=== PATIENT | female | born 1970 | race Caucasian/White ===

== ENCOUNTER 2017-03-29 11:38 | Inpatient (IN) | payer OTHER ==
[~2017-03-29 11:38] MED LIST: ENOXAPARIN 40 MG/0.4 ML SYR SC SCH
--- NOTE | 2017-03-29 12:03 | CPEKG ---
Heart Rate: 100 RR Interval: 600 P-R Interval: 136 QRSD Interval: 90 QT Interval: 336 QTC Interval: 434 P Richmond: 46 QRS Richmond: 20 T Wave Richmond: -75 EKG Severity - ABNORMAL ECG - EKG Impression: SINUS TACHYCARDIA EKG Impression: LEFT ATRIAL ABNORMALITY Electronically Signed By: Sweetie Martin 29-Mar-2017 16:45:29
--- NOTE | 2017-03-29 12:35 | EDPHY ---
H & P Stated Complaint: "I think I have pleurisy";R lung pain HPI/ROS: CHIEF COMPLAINT: Sharp right-sided chest pain HISTORY OF PRESENT ILLNESS: This patient is a 46 year old female with history of lupus complaining of right lung pain onset this morning. She states she generally has intermittent joint pain related to her lupus, but yesterday began to develop muscle pain as well. This morning, she developed a sharp pain in her right chest, along with shortness of breath. She feels she needs to take shallow breaths to reduce the pain. She endorses sharp back pains over the last two weeks, and states her current pain feels similar. She states she has had pleurisy in the past, and that her symptoms today also feel similar to this. She has taken 30mg of Prednisone today at home with no relief in symptoms. She denies fever, cough, left-sided chest pain, calf pain. She denies recent travel or surgery. REVIEW OF SYSTEMS: A ten point review of systems was performed and is negative with the exception of the items mentioned in the HPI. Source: Patient Exam Limitations: No limitations - Personal History LMP (Females 10-55): Post Menopausal Current Tetanus Diphtheria and Acellular Pertussis (TDAP): Yes - Medical/Surgical History PMH: Lupus, diagnosed at age 24 Other PMH: Lupus - Social History Smoking Status: Former smoker Additional Social History: at bedside. PCP Miracle Verduzco PA-C, Dr. Austin greens keeper - Physical Exam Exam: General Appearance: Alert. Vital signs reviewed. Heart rate 106, blood pressure 118/81. Eyes: Pupils equal and round, no conjunctival injection, no discharge. Anicteric. ENT, Mouth: Right cheek erythematous, warm. Mucous membranes are moist, no oropharyngeal erythema or edema. Neck: No lymphadenopathy, supple. No meningeal signs. Respiratory: Lungs are clear to auscultation; no wheezes, rales, or rhonchi. Cardiovascular: Regular rate and rhythm; no murmur, rub, or gallop. Gastrointestinal: Abdomen is soft and nontender, no masses or organomegaly, bowel sounds normal. Skin: Warm and dry, no rashes on exposed skin, normal color. Back: Nontender to palpation over the thoracolumbar spine. No CVAT. Extremities: No lower extremity edema, no calf tenderness or swelling. Neurological: Alert and oriented. Moving all four extremities easily and equally. Cranial nerves II through XII are examined and are intact (visual acuity not tested). Strength is 5 over 5 bilaterally with testing of all major motor groups. Sensation is intact to light touch over all 4 extremities. Psychiatric: Normal affect. Constitutional: Initial Vital Signs Temperature (C) 37.1 C 03/29/17 11:40 Heart Rate 106 H 03/29/17 11:40 Respiratory Rate 20 03/29/17 11:40 Blood Pressure 118/81 H 03/29/17 11:40 O2 Sat (%) 92 03/29/17 11:40 O2 Delivery Mode Nasal Cannula O2 (L/minute) 2 Allergies/Adverse Reactions: No Known Allergies Allergy (Unverified 03/29/17 11:47) Home Medications: Medication Instructions Recorded Herbals/Supplements -Info Only 1 ea PO DAILY 03/29/17 Hydroxychloroquine Sulfate 400 mg PO HS 03/29/17 [Plaquenil 200 mg (*)] Multivitamins [Multivitamin (*)] 1 each PO DAILY 03/29/17 Mycophenolate Mofetil [Cellcept] 1,000 mg PO HS 03/29/17 Omeprazole [Prilosec 20 mg] 20 mg PO DAILY PRN 03/29/17 predniSONE 5 - 15 mg PO DAILY 03/29/17 traMADol [Ultram 50 mg (*)] 50 mg PO Q4 PRN 03/29/17 Medical Decision Making - Diagnostics EKG Interpretation: The 12 lead EKG was interpreted by myself. See hard copy and/or "tracemaster" electronic copy for interpretation. Sinus tachycardia, rate 100. Imaging Results: 1. Chest x-ray shows a right pleural effusion 2. Chest CTA does not reveal a pulmonary embolus. There is a right pleural effusion. There is also a cystic lesion that involves the right kidney--this is not fully evaluated on this study 3. Abdominal CT shows a psoas abscess 4. Facial CT shows right cheek swelling, no obvious infection. All of above studies reported to me by radiologist. Please see their full reports. Imaging: Discussed imaging studies w/ call manager Radiologist, I viewed and interpreted images myself ED Course/Re-evaluation: This patient is a 46 year old female with history of lupus presenting with sharp right-sided chest pain onset this morning. On exam she also has erythema and warmth involving her right cheek (only the right). She has had rashes with her lupus before and thinks that this could be a lupus related rash. Chest x-ray shows right pleural effusion. Elevated WBC at 33. D-Dimer abnormal, elevated at 2.34. CT angiogram of the chest ordered. 13:49 Reassessed patient. Erythematous area on right side of face now spreading down to neck. No crepitus. 14:[address] Rios, radiologist. CT angiogram shows right pleural effusion and a right renal associated cyst measuring 7 x 9 cm. No pneumonia and no PE. She is being admitted to the hospital for further evaluation of her pleural effusion and of the cystic structure in her abdomen. CT of the abdomen and pelvis is recommended and will be performed. Facial erythema has extended onto her neck and slightly on to her upper chest. There is also an erythematous area on her nose. It is warm to the touch. Still without crepitus. I have spoken with Ear Nose and Throat because of my concern for necrotizing fasciitis in this setting of lupus with significant leukocytosis. She does not have any pain in the regions of this redness. CT scan of the face is also being performed to assess further. Blood cultures have been obtained. She will be given a dose of vancomycin. Blood cultures have been obtained. Dr. Nguyen will be admitting this patient. CT scan results pending at the time of this dictation. Differential Diagnosis: I have considered a differential diagnosis including but not limited to complication of lupus, necrotizing fasciitis, cellulitis, abscess, pneumonia, urinary tract infection, viral syndrome, and sepsis. - Data Points Laboratory Results: Laboratory Results 03/29/17 12:00 03/29/17 12:00 Microbiology Results: MICROBIOLOGY 03/29/17 15:32 Blood Blood Culture - Preliminary 03/29/17 16:05 Blood Blood Culture - Preliminary Medications Given: Discontinued Medications Enoxaparin Sodium (Lovenox) 40 mg SC DAILY SHIRA Stop: 09/25/17 08:59 Last Admin: 03/29/17 18:16 Dose: Not Given Vancomycin/Sodium Chloride (Vancomycin 1 Gm (Premix)) 250 mls @ 250 mls/hr IV EDNOW ONE PRN Reason: Protocol Stop: 03/29/17 16:19 Last Admin: 06/30/17 16:11 Dose: 250 mls Sodium Chloride (Ns) 1,000 mls @ 0 mls/hr IV ONCE ONE; Wide Open PRN Reason: Protocol Stop: 03/29/17 15:42 Last Admin: 03/29/17 16:11 Dose: 1,000 mls Sodium Chloride (Ns) 1,000 mls @ 3,000 mls/hr IV ONCE ONE Stop: 03/29/17 16:28 Last Admin: 03/29/17 16:11 Dose: Not Given Morphine Sulfate (Morphine) 6 mg IVP EDNOW ONE Stop: 03/29/17 15:57 Last Admin: 03/29/17 16:09 Dose: 6 mg Departure - Departure Disposition: [facility] Inpatient Acute Clinical Impression: Pleural effusion, Facial cellulitis, Abdominal cyst Condition: Fair Report Scribed for: Sweetie Martin Report Scribed by: Mesha Caldera Date of Report: 03/29/17 Time of Report: 12:42 Physician Review and Approval Statement: 03/29/17 12:35 Portions of this note were transcribed by the bio medical technician. I, Dr. Sweetie Martin, personally performed the history, physical exam, and medical decision- making; and confirmed the accuracy of the information in the transcribed note.
[2017-03-29 13:11] LABS: ADD MORPH? NO; ADD SCAN? YES; ATYPICAL LYMPHOCYTE FLAG 0 (0-99); FRAGMENT RBC FLAG 20 (0-99); HEMATOCRIT 41.1 % (38.0-47.0); HEMOGLOBIN 12.4 g/dL (12.6-16.3); LEFT SHIFT FLG 80 (0-99); LIPEMIA HEMOLYSIS FLAG 80 (0-99); MEAN CELL HEMOGLOBIN 24.6 pg (27.9-34.1); MEAN CELL HEMOGLOBIN CONCENTR. 30.2 g/dL (32.4-36.7); MEAN CELL VOLUME 81.5 fL (81.5-99.8); MEAN PLATELET VOLUME 11.2 fL (8.7-11.7); PLATELET CLUMPS FLAG 10 (0-99); PLATELET COUNT 529 10^3/uL (150-400); RED BLOOD CELL COUNT 5.04 10^6/uL (4.18-5.33); RED CELL DISTRIBUTION WIDTH 18.1 % (11.5-15.2)
[2017-03-29 13:14] LABS: ANION GAP 12 mEq/L (8-16); CARBON DIOXIDE 29 mEq/l (22-31); CHLORIDE 94 mEq/L (97-110); CREATININE 0.6 mg/dL (0.6-1.0); GLOMERULAR FILTRATION RATE > 60; GLUCOSE 113 mg/dL (70-100); POTASSIUM 3.5 mEq/L (3.5-5.2); SODIUM 135 mEq/L (134-144)
[2017-03-29 13:41] LABS: ADD DIFF? YES; SCAN POSITIVE
[2017-03-29 13:44] LABS: PLATELET ESTIMATE INCREASED (ADEQ)
[2017-03-29] MEDS ORDERED: IOPAMIDOL (ISOVUE 370) 100 ML BTL IV ONE (14:00)
[2017-03-29] MEDS ORDERED: VANCOMYCIN HCL/NORMAL SALINE 250 ML IV ONE (15:20)
[2017-03-29] MEDS ORDERED: NS 1,000 ML IV ONE ×2 (15:41→16:09)
[2017-03-29] MEDS ORDERED: IOPAMIDOL (ISOVUE-300) 100 ML BTL ONE (16:13)
[2017-03-29] MEDS ORDERED: ONDANSETRON 4 MG/2 ML VIAL IVP PRN (17:10)
[2017-03-29] MEDS ORDERED: ONDANSETRON DISINTEGRATING 4 MG TAB PO PRN (17:10)
[2017-03-29] MEDS ORDERED: ACETAMINOPHEN 325 MG TAB PO PRN (17:10)
[2017-03-29] MEDS ORDERED: NON-FORMULARY NEW DRUG (Omeprazole [Prilosec 20 Mg] 20 MG) PO PRN (17:13)
[2017-03-29] MEDS ORDERED: LIDOCAINE 1% 300 MG/30 ML SDV ONE (17:53)
--- NOTE | 2017-03-29 18:32 | GHP ---
[f rep st] HISTORY AND PHYSICAL DATE OF ADMISSION: 03/29/2017 CHIEF COMPLAINT: Chest and back pain. HISTORY OF PRESENT ILLNESS: A 46-year-old female with a history of lupus, on intermittent prednison e therapy, who presents with the sudden onset of right-sided chest and back pain, with associated sh ortness of breath. The patient reports the pain beginning this morning. She states she has been in her normal state of health preceding, with normal intake. Cannot specifically describe any subject renetta fevers or chills. Is experiencing a pleuritic nature to this pain, as well as a muscle-type vale k pain. The patient describes this pain as sharp. She, in response, took 30 mg of prednisone today from her normal 5, thinking this may be somehow related to her lupus. Otherwise, she denies any co nstipation or diarrhea. Denies dysuria. Denies hematuria. Did note some erythema of her right guerda ek. Otherwise, no lower extremity edema or clear rashes. The patient also denies any recent cough for hemoptysis. PAST MEDICAL HISTORY: 1. Lupus. 2. Menopausal. SOCIAL HISTORY: Negative for tobacco, alcohol, or illicit drugs. FAMILY HISTORY: Positive for lupus in her sister. ADVANCED DIRECTIVES: The patient is full cor, full tube. REVIEW OF SYSTEMS: A 10-point review of systems is negative with the exception of that reported in the HPI. PHYSICAL EXAMINATION: VITAL SIGNS: Blood pressure 111/73, heart rate 81, respiratory rate 18, 92% on 2 L, 36.7. GENERAL: This is a very pleasant-appearing young female in no acute distress. HEENT : Exam notable for erythema of the cheek that extends down the right side of her neck. Mucous memb ranes appear dry. Eye exam is negative for any icterus. CARDIAC: The patient is regular rate and rhythm. PULMONARY: She is clear to auscultation. Has diminished breath sounds on the right. No r ales or rhonchi are appreciated. GASTROINTESTINAL: Positive bowel sounds. ABDOMEN: Soft and nont nydia in all 4 quadrants. MUSCULOSKELETAL: Negative for any lower extremity edema. SKIN: Notable for erythema of the right cheek and right neck. NEUROLOGIC: She is alert and oriented x3. PSYCHI ATRIC: She is pleasant and cooperative on interview and examination. DATA: White count is 33,000. On last check, it was 9. Hematocrit 41.1, platelets 529. D-dimer 2. 3. Creatinine 0.6, sodium 135. CTA of the chest shows no pulmonary embolism. There is a right-yaniv ed effusion noted, described as large, with no underlying pneumonia. A cystic legion is described n ear the right kidney. CT of the pelvis, which I personally reviewed and interpreted, shows an irreg ular, large, right-sided psoas abscess and constipation. CT of the face, which I personally reviewe d and interpreted, shows mild cheek swelling. No cellulitis identified. ASSESSMENT AND PLAN: This is a 46-year-old female, presenting with right-sided back and chest pain. 1. Acute psoas abscess. The patient will be seen in consultation by General Surgery, Dr. Green. I have already coordinated the drainage of this by Radiology, Dr. Monzon. The patient has been made n. p.o., and ultrasound drainage has been ordered. We will initially treat with IV Zosyn. Blood cultu res were obtained in the emergency department. We can titrate her antibiotic therapy based on the c ulture results, both from her blood and her abscess drainage. 2. Acute leukocytosis secondary to acute psoas abscess. We will follow her white count on appropri ate therapy. 3. Right-sided pleural effusion. Suspect this is a response to her right-sided psoas abscess. We will not attempt drainage at this time. We will treat the underlying process and follow her clinica l progression. 4. Lupus. The patient did take a pulse dose of steroids today. Her blood pressures are normal. S uspect she will likely need pulse dosing for the next day or 2. I will write her for prednisone 20 tomorrow and then allowed the ongoing physician to determine dosing. 5. Prophylaxis. We will hold Lovenox for drainage of her abscess. Can give in the morning. She i s ambulating currently. We will continue to encourage this. 6. Diet. N.p.o. for intervention. DISPOSITION: I am expecting greater than 2 midnights, as the patient is presenting with an acute ps oas abscess, requiring drainage and IV antibiotics. I have discussed the case with the emergency ro om physician, as well as with Radiology and General Surgery. The patient will be triaged to the [facility] for IV antibiotics and ultrasound-guided drainage of her abscess. /[id number]/MODL
--- NOTE | 2017-03-29 18:50 | PDCONSULT ---
Violin Maker Hand Note: CC: back pain HPI: 46 y/o female with one month hx worsening back and right flank pain seen in the ED today for facial erythema. CT of the abd and pelvis showed a large right psoas abscess. Surgical consult was requested PMH: Lupus meds: Prednisone, Plaquenil NKDA SH: PCP Miracle Pearl, DATA GOVERNANCE CONSULTANT Coin Machine Collector Supervisor Win Paulson MD Pankaj at bedside-two teenage children ROS: kicked by a horse in the right chest area last fall no more recent trauma, no complicated dental issues PE: pleasant female in mild distress HEENT: - icterus/adenopathy, bi-malar rash lungs: diminished breath sounds right chest CVS: RRRf-tachy abd: no focal tenderness/+ R CVA tenderness pelvic: deferred wbc 33K Imp: right psoas abscss SLE on steroids Rec: attempt percutaneous drainage/surgical drainage if unsuccessful discussed with patient, and Dr. Nicolás Green MD, FACS
[2017-03-29] MEDS: PIPERACILLIN/TAZO 3.375 GM/DEX 50 ML IV SCH (19:52)
[2017-03-29] MEDS: HYDROXYCHLOROQUINE SULFATE 200 MG TAB PO SCH (20:04)
[2017-03-29 20:31] LABS: BODY FLUID CELL COUNT OTHER BODY FLUID
[2017-03-29 20:34] LABS: BODY FLUID GLUCOSE OTHER BODY FLUID; BODY FLUID PROTEIN OTHER BODY FLUID
[2017-03-30] MEDS: PIPERACILLIN/TAZO 3.375 GM/DEX 50 ML IV SCH ×5 (00:15→23:28)
[2017-03-30] MEDS: traMADol 50 MG TAB PO PRN (00:15)
[2017-03-30 05:09] LABS: % IMMATURE GRANULYOCYTES 1.1 % (0.0-1.1); ABSOLUTE IMMATURE GRANULOCYTES 0.25 10^3/uL (0.00-0.10); ADD DIFF? NO; ADD MORPH? NO; ADD SCAN? NO; ATYPICAL LYMPHOCYTE FLAG 0 (0-99); FRAGMENT RBC FLAG 20 (0-99); HEMATOCRIT 31.7 % (38.0-47.0); HEMOGLOBIN 9.5 g/dL (12.6-16.3); LEFT SHIFT FLG 80 (0-99); LIPEMIA HEMOLYSIS FLAG 80 (0-99); MEAN CELL HEMOGLOBIN 24.2 pg (27.9-34.1); MEAN CELL VOLUME 80.9 fL (81.5-99.8); MEAN PLATELET VOLUME 10.2 fL (8.7-11.7); PLATELET CLUMPS FLAG 0 (0-99); PLATELET COUNT 333 10^3/uL (150-400); RED BLOOD CELL COUNT 3.92 10^6/uL (4.18-5.33); RED CELL DISTRIBUTION WIDTH 18.2 % (11.5-15.2)
[2017-03-30 05:22] LABS: ANION GAP 9 mEq/L (8-16); CALCIUM 9.3 mg/dL (8.5-10.4); CARBON DIOXIDE 27 mEq/l (22-31); CHLORIDE 101 mEq/L (97-110); CREATININE 0.6 mg/dL (0.6-1.0); GLOMERULAR FILTRATION RATE > 60; GLUCOSE 93 mg/dL (70-100); POTASSIUM 3.7 mEq/L (3.5-5.2); SODIUM 137 mEq/L (134-144)
--- NOTE | 2017-03-30 08:28 | HOSPPROG ---
Hospitalist Progress Note Assessment/Plan: # R psoas abscess s/p percutaneous drainage - GS with GNR, GPC - cont zosyn, add vanc pending speciation of GPC - likely needs ID consult # R pleural effusion, loculated - will need drainage - discuss with surgery regarding IR vs chest tube drainage # R facial erythema - minimal on my exam; d/t Lupus vs other? # lupus - cont MMF, high dose of pred for now # chronic immunosuppression # leukocytosis - combination of steroids and inflammation Subjective: R chest pain slightly better today Objective: Vital Signs Temp Pulse Resp BP Pulse Ox 36.5 C 75 16 108/71 92 03/30/17 04:01 03/30/17 04:01 03/30/17 04:01 03/30/17 04:01 03/30/17 04:01 Microbiology 03/29/17 Unknown Gram Stain - Final Pelvis - Aspirate Laboratory Results 03/30/17 04:44 03/30/17 04:44 03/29/17 03/30/17 03/31/17 05:59 05:59 05:59 Intake Total 300 Output Total 60 Balance 240 chart reviewed all imaging reviewed - Physical Exam Constitutional: no apparent distress, appears nourished Ears, Nose, Mouth, Throat: other (mild R facial erythema; decreased R neck erythema) Cardiovascular: regular rate and rhythym, no murmur, rub, or gallop Respiratory: no respiratory distress, no rales or rhonchi, other (diminished R sided BS) Gastrointestinal: normoactive bowel sounds, soft, non-tender abdomen, other (ADIN drain with purulence) ICD10 Worksheet Patient Problems: Problems Problem Status Onset Pleural effusion Acute Facial cellulitis Acute Abdominal cyst Acute
[2017-03-30] MEDS: predniSONE 20 MG TAB PO SCH (08:55)
[2017-03-30] MEDS: MULTIVITAMINS 1 EACH TAB PO SCH (08:55)
[2017-03-30] MEDS ORDERED: predniSONE 5 MG TAB PO SCH (09:00)
[2017-03-30] MEDS ORDERED: Herbals/Supplements -Info Only PO SCH (09:00)
[2017-03-30] MEDS ORDERED: VANCOMYCIN 1.5 GM in D5W 250 ML IV SCH (09:00)
[2017-03-30] MEDS: VANCOMYCIN 1.25 GM in D5W 250 ML IV SCH ×2 (09:53→21:28)
[2017-03-30] MEDS ORDERED: LIDOCAINE 1% 300 MG/30 ML SDV ONE (14:20)
[2017-03-30 14:42] LABS: APTT 24.6 SEC (23.0-38.0); INR 1.23 (0.83-1.16); PROTIME(PATIENT) 15.5 SEC (12.0-15.0)
[2017-03-30] MEDS ORDERED: NON-FORMULARY NEW DRUG (Mycophenolate Mofetil [Cellcept] 1,000 MG) PO SCH (21:00)
[2017-03-30] MEDS: HYDROXYCHLOROQUINE SULFATE 200 MG TAB PO SCH (21:28)
[2017-03-30] MEDS: MYCOPHENOLATE MOFETIL 250 MG CAP PO SCH (21:28)
[2017-03-31] MEDS: PIPERACILLIN/TAZO 3.375 GM/DEX 50 ML IV SCH ×3 (05:27→17:53)
[2017-03-31 05:38] LABS: % IMMATURE GRANULYOCYTES 0.8 % (0.0-1.1); ABSOLUTE IMMATURE GRANULOCYTES 0.16 10^3/uL (0.00-0.10); ADD DIFF? NO; ADD MORPH? NO; ADD SCAN? NO; ATYPICAL LYMPHOCYTE FLAG 0 (0-99); FRAGMENT RBC FLAG 0 (0-99); HEMATOCRIT 28.8 % (38.0-47.0); HEMOGLOBIN 8.8 g/dL (12.6-16.3); LEFT SHIFT FLG 10 (0-99); LIPEMIA HEMOLYSIS FLAG 80 (0-99); MEAN CELL HEMOGLOBIN 24.7 pg (27.9-34.1); MEAN CELL HEMOGLOBIN CONCENTR. 30.6 g/dL (32.4-36.7); MEAN CELL VOLUME 80.9 fL (81.5-99.8); MEAN PLATELET VOLUME 10.2 fL (8.7-11.7); PLATELET CLUMPS FLAG 0 (0-99); PLATELET COUNT 319 10^3/uL (150-400); RED BLOOD CELL COUNT 3.56 10^6/uL (4.18-5.33); RED CELL DISTRIBUTION WIDTH 17.8 % (11.5-15.2)
[2017-03-31 05:53] LABS: ANION GAP 6 mEq/L (8-16); CALCIUM 9.4 mg/dL (8.5-10.4); CARBON DIOXIDE 27 mEq/l (22-31); CHLORIDE 105 mEq/L (97-110); CREATININE 0.6 mg/dL (0.6-1.0); GLOMERULAR FILTRATION RATE > 60; GLUCOSE 94 mg/dL (70-100); POTASSIUM 3.7 mEq/L (3.5-5.2); SODIUM 138 mEq/L (134-144)
--- NOTE | 2017-03-31 08:18 | HOSPPROG ---
Hospitalist Progress Note Assessment/Plan: # R psoas abscess s/p percutaneous drainage - GS with GNR, GPC; culture with staph a - sens pending - cont zosyn/vanc - ID consult today # R pleural effusion, loculated - will need drainage - plan IR drainage today # R facial erythema - minimal on my exam; d/t Lupus vs other? # lupus - cont MMF, high dose of pred for now # chronic immunosuppression # leukocytosis - combination of steroids and inflammation Subjective: chest pain improving; no N/V/diarrhea Objective: Vital Signs Temp Pulse Resp BP Pulse Ox 36.4 C 67 20 102/71 93 03/31/17 07:40 03/31/17 07:40 03/31/17 07:40 03/31/17 07:40 03/31/17 07:40 Microbiology 03/29/17 Unknown Gram Stain - Final Pelvis - Aspirate Laboratory Results 03/31/17 05:03 03/31/17 05:03 03/30/17 03/31/17 04/01/17 05:59 05:59 05:59 Intake Total 300 Output Total 60 25 Balance 240 -25 PT 15.5 SEC (12.0-15.0) H 03/30/17 14:15 INR 1.23 (0.83-1.16) H 03/30/17 14:15 mod risk - Physical Exam Constitutional: no apparent distress, appears nourished Cardiovascular: regular rate and rhythym, no murmur, rub, or gallop Respiratory: no respiratory distress, no rales or rhonchi, other (diminished R base BS) Gastrointestinal: normoactive bowel sounds, soft, non-tender abdomen ICD10 Worksheet Patient Problems: Problems Problem Status Onset Pleural effusion Acute Facial cellulitis Acute Abdominal cyst Acute
--- NOTE | 2017-03-31 09:12 | PDCONSULT ---
[employer]vention [employer] Psychologist Note: Alma is feeling better, no further back pain Lungs: diminished right mid lung to base Abd: soft/non-tender, ADIN purulent cultures: S. aureus Imp: s/p drainage right psoas abscess right pleural effusion-probably sympathetic effusion Rec: continue Abx drain mangement per IR reconsult surgery prn. S MD Peter, FACS
[2017-03-31] MEDS: predniSONE 20 MG TAB PO SCH (09:29)
[2017-03-31] MEDS: MULTIVITAMINS 1 EACH TAB PO SCH (09:29)
[2017-03-31] MEDS: VANCOMYCIN 1.25 GM in D5W 250 ML IV SCH ×2 (10:15→21:58)
[2017-03-31 14:25] LABS: LACTATE DEHYDROGENASE 434 IU/L (313-618)
--- NOTE | 2017-03-31 14:27 | GCON ---
[f rep st] CONSULTATION DATE OF CONSULTATION: 03/31/2017 REFERRING PHYSICIAN: Dr. Cornelio Correa REASON FOR CONSULTATION: Large right psoas abscess, right pleural effusion, for further evaluation of pain. CHIEF COMPLAINT: Shortness of breath. HISTORY OF PRESENTING ILLNESS: This is a 46-year-old female with a past medical history for lupus on low-dose prednisone therapy. She states that she has been having increasing fatigue, shortness of breath, right-sided back pain for the past few months. She denied any dysuria or hematuria. She was short of breath with minimal exertion. She denied any coughing or bringing up any phlegm. She does not recall any fevers or shaking chills as such except for this past week on when she started to have some low-grade temperatures and increasing shortness of breath at that time. She also complained of some chest pain at that time, which ended up prompting her to come into the hospital. On that particular day she took 30 mg of prednisone wherein she is normally on 5 mg of prednisone. In the ED, she was relatively afebrile, but she was tachycardic to 106. Her white blood cell count was 33,000 with 16% bands. Blood cultures x2 sets were drawn and those are no growth to date. She had initially a chest x-ray done which showed moderate right pleural effusion with associated consolidation. She ended up undergoing a CT angio which then showed no evidence of a PE, but she had again a new large right pleural effusion and an associated large cystic lesion near the kidney. She underwent an abdominal CT which showed that she had an irregular fluid collection right psoas muscle suspicious for an abscess and again a loculated pleural effusion. She also had a face CT because she had swelling and redness of her right cheek which extended down her right neck. The CT did not provide any additional information as far as an etiology to her clinical findings. She underwent an abscess drainage on March 29 wherein 300 mL of thick, purulent yellow fluid was withdrawn and this was sent for cultures. The culture showed 3+ gram-positive cocci, 1+ gram-negative rods, 2+ polys and so far is growing out 4+ Staph aureus. She was placed on vancomycin and Zosyn therapy. The sensitivity profile on the Staph aureus is not out yet so it is unclear whether this is MSSA or MRSA. She is going down today for a right thoracentesis to evaluate that further as well. Infectious Disease was now consulted to help with management. REVIEW OF SYSTEMS: GENERAL: Intermittent headaches but none currently. HEENT : As far as head is concerned, she had no headaches. Denies any eye pain, change in vision. No sore throat, difficulty swallowing, ear pain or drainage. CARDIOVASCULAR: Apart from the last couple of days where she had some chest pains no previous chest pain or palpitations. RESPIRATORY: Shortness of breath with exertion. No coughing or bringing up any phlegm. ABDOMEN: No nausea, vomiting, abdominal pain, or diarrhea. : Denies any dysuria, hematuria. BACK: Had some lower back pain particularly on the right. MUSCULOSKELETAL: Denies any lower extremity edema or muscle weakness. She does have chronic pain related to her lupus which is not increased more than normal. SKIN: Denies any recent skin lesions or wounds. She has just had this redness over her right cheek, it is extending to her neck of uncertain etiology. PAST MEDICAL HISTORY:Lupus PAST SURGICAL HISTORY:none ALLERGIES: no known medication allergies SOCIAL HISTORY: nonsmoker, denies alcohol intake. FAMILY HISTORY: Sister has Lupus PHYSICAL EXAMINATION: VITAL SIGNS: Temperature current 37.2, pulse is 87, blood pressure 104/70, saturation on 4 L O2 via nasal cannula. Respiratory rate 16. GENERAL: She is resting comfortably in bed. No acute respiratory distress. Awake, alert, and oriented x3. HEENT: Head normocephalic atraumatic. Eyes without conjunctival injection. Oropharynx is clear. There is no tenderness over the palpation of the sinuses. She has some mild swelling and redness over the right cheek. CARDIOVASCULAR: S1, S2. Regular rate and rhythm. Possible murmur but difficult to discern. RESPIRATORY : Decreased breath sounds on the right particularly. ABDOMEN: Positive bowel sounds in all 4 quadrants. Soft, nontender, nondistended. No organomegaly appreciated. RIGHT BACK: She has a drain in place with purulent material noted. MUSCULOSKELETAL: No obvious joint effusions or pain on palpation of the joints. SKIN: No obvious rashes. LABORATORY: White blood cell count is 19.7, hemoglobin 8.8, platelets are 319, 8%. Sodium 138, potassium 3.7, chloride 105, bicarb 27, BUN is 10 , creatinine 0.6. Cultures as stated above. Imaging results have all been reviewed by me and are stated above. ASSESSMENT: 1. Large right psoas abscess. 2. Right pleural effusion for thoracentesis today. PLAN: The patient is currently on vancomycin and Zosyn therapy. Await Staph aureus profile to better direct her antimicrobials. If no additional gram negatives grew out, should be able to tailor down her therapy further. Will monitor drain output and when the drainage is minimal for several days recommend a followup CT of the abdomen and pelvis to further evaluate any residual abscess collections. Await thoracentesis to assess whether or not she has empyema or not. Follow labs. Plan of care was reviewed with the patient and the at the bedside. Care was coordinated with Dr. oCrrea. Thank you very much for this opportunity to care for your patient in consultation. /[id number]/MODL MTDD
[2017-03-31] MEDS: traMADol 50 MG TAB PO PRN (15:10)
[2017-03-31 15:36] LABS: LD, PLEURAL FLUID 28989 IU/L
[2017-03-31] MEDS: HYDROXYCHLOROQUINE SULFATE 200 MG TAB PO SCH (21:57)
[2017-03-31] MEDS: MYCOPHENOLATE MOFETIL 250 MG CAP PO SCH (21:58)
[2017-04-01] MEDS: traMADol 50 MG TAB PO PRN (00:08)
[2017-04-01] MEDS: PIPERACILLIN/TAZO 3.375 GM/DEX 50 ML IV SCH ×2 (00:09→05:34)
[2017-04-01 05:21] LABS: % IMMATURE GRANULYOCYTES 1.6 % (0.0-1.1); ABSOLUTE IMMATURE GRANULOCYTES 0.25 10^3/uL (0.00-0.10); ADD DIFF? NO; ADD MORPH? NO; ADD SCAN? NO; ATYPICAL LYMPHOCYTE FLAG 0 (0-99); FRAGMENT RBC FLAG 20 (0-99); HEMATOCRIT 33.1 % (38.0-47.0); HEMOGLOBIN 9.8 g/dL (12.6-16.3); LEFT SHIFT FLG 20 (0-99); LIPEMIA HEMOLYSIS FLAG 70 (0-99); MEAN CELL HEMOGLOBIN 24.1 pg (27.9-34.1); MEAN CELL HEMOGLOBIN CONCENTR. 29.6 g/dL (32.4-36.7); MEAN CELL VOLUME 81.5 fL (81.5-99.8); MEAN PLATELET VOLUME 10.7 fL (8.7-11.7); PLATELET CLUMPS FLAG 10 (0-99); PLATELET COUNT 316 10^3/uL (150-400); RED BLOOD CELL COUNT 4.06 10^6/uL (4.18-5.33); RED CELL DISTRIBUTION WIDTH 17.9 % (11.5-15.2)
[2017-04-01 05:34] LABS: ALBUMIN 2.1 g/dL (3.5-5.0); BILIRUBIN,TOTAL 0.6 mg/dL (0.1-1.4); BILIRUBIN-CONJUGATED 0.5 mg/dL (0.0-0.5); BILIRUBIN-UNCONJUGATED 0.1 mg/dL (0.0-1.1); TOTAL PROTEIN 4.8 g/dL (6.3-8.2)
--- NOTE | 2017-04-01 08:47 | PCMIDPN ---
Assessment/Plan: Assessment: MRSA psoas abscess with right-sided exudate of pleural effusion. No positive growth from fluid culture yet from the chest cavity but given the cell counts would fully anticipate this is secondary to MRSA as well. Currently being covered on vancomycin and Zosyn. Will discontinue the Zosyn at this point in time. Will follow the fluid cultures forward. Also follow up on blood cultures. Clinically the patient has improved stability today. Plan: 1. Continue IV vancomycin. Trough from yesterday 13.1 is reasonable. Do not change dose. 2. Follow up on right pleural effusion. If this is secondary to MRSA it is possible that she may need VATS and decortication. 3. Discontinue Zosyn. 4. Follow clinical course. 04/01/17 08:47 Subjective: Patient is resting in her hospital bed. She has no new complaint. States that she feels better than admission. Notes that the pleuritic discomfort is somewhat lessened. It is replaced by discomfort from the chest tube. Objective: Vancomycin # 3 Zosyn # 3 Vital Signs Temp Pulse Resp BP Pulse Ox 36.2 C 72 16 111/73 100 04/01/17 07:51 04/01/17 07:51 04/01/17 07:51 04/01/17 07:51 04/01/17 07:51 Microbiology 03/31/17 12:40 Gram Stain - Final Thoracic Fluid - Aspirate 03/29/17 Unknown Gram Stain - Final Pelvis - Aspirate Laboratory Results 04/01/17 04:52 03/31/17 05:03 03/31/17 04/01/17 04/02/17 05:59 05:59 05:59 Intake Total 400 Output Total 25 270 Balance -25 130 - Physical Exam General Appearance: WD/WN, alert, no apparent distress, non-toxic Respiratory: lungs clear, normal breath sounds, No respiratory distress Cardiac/Chest: regular rate, rhythm, No tachycardia Skin: normal color, warm/dry, No rash Neuro/Psych: alert, normal mood/affect, oriented x 3 ICD10 Worksheet Patient Problems: Problems Problem Status Onset Abdominal cyst Acute Facial cellulitis Acute Pleural effusion Acute
[2017-04-01] MEDS ORDERED: ALTEPLASE 2 MG VIAL IVP PRN (09:09)
--- NOTE | 2017-04-01 09:15 | HOSPPROG ---
Hospitalist Progress Note Assessment/Plan: # R psoas abscess s/p percutaneous drainage - MRSA - cont vanc, dc zosyn # R pleural effusion - suspect this will be empyema - s/p 6f pigtail CT - doubt this will be adequate - wait for cultures (GS with no organisms) before making further decisions - options include large bore CT vs VATS - place PICC # R facial erythema - resolved; d/t Lupus? # lupus - cont MMF, taper pred 20->10mg today; follow closely for adrenal insufficiency with ongoing procedures # chronic immunosuppression # leukocytosis - combination of steroids and inflammation Subjective: s/p IR apsiration of pleural effusion with 7f pigtail CT placed; no other complaints Objective: Vital Signs Temp Pulse Resp BP Pulse Ox 36.2 C 72 16 111/73 100 04/01/17 07:51 04/01/17 07:51 04/01/17 07:51 04/01/17 07:51 04/01/17 07:51 Microbiology 03/31/17 12:40 Gram Stain - Final Thoracic Fluid - Aspirate 03/29/17 Unknown Gram Stain - Final Pelvis - Aspirate Laboratory Results 04/01/17 04:52 03/31/17 05:03 03/31/17 04/01/17 04/02/17 05:59 05:59 05:59 Intake Total 400 Output Total 25 270 Balance -25 130 PT 15.5 SEC (12.0-15.0) H 03/30/17 14:15 INR 1.23 (0.83-1.16) H 03/30/17 14:15 op note reviewed fluoro reviewed CXR personally reviewed ICD10 Worksheet Patient Problems: Problems Problem Status Onset Pleural effusion Acute Facial cellulitis Acute Abdominal cyst Acute
[2017-04-01] MEDS: VANCOMYCIN 1.25 GM in D5W 250 ML IV SCH ×2 (10:20→21:27)
[2017-04-01] MEDS: MULTIVITAMINS 1 EACH TAB PO SCH (10:21)
[2017-04-01] MEDS: predniSONE 20 MG TAB PO SCH (10:43)
[2017-04-01] MEDS: HYDROXYCHLOROQUINE SULFATE 200 MG TAB PO SCH (21:27)
[2017-04-01] MEDS: MYCOPHENOLATE MOFETIL 250 MG CAP PO SCH (21:27)
[2017-04-01] MEDS: PANTOPRAZOLE SODIUM 40 MG TAB PO PRN (21:27)
[2017-04-02 05:37] LABS: % IMMATURE GRANULYOCYTES 1.4 % (0.0-1.1); ABSOLUTE IMMATURE GRANULOCYTES 0.16 10^3/uL (0.00-0.10); ADD DIFF? NO; ADD MORPH? NO; ADD SCAN? NO; ATYPICAL LYMPHOCYTE FLAG 0 (0-99); FRAGMENT RBC FLAG 20 (0-99); HEMATOCRIT 30.3 % (38.0-47.0); HEMOGLOBIN 9.1 g/dL (12.6-16.3); LEFT SHIFT FLG 10 (0-99); LIPEMIA HEMOLYSIS FLAG 80 (0-99); MEAN CELL HEMOGLOBIN 24.5 pg (27.9-34.1); MEAN CELL VOLUME 81.5 fL (81.5-99.8); MEAN PLATELET VOLUME 10.1 fL (8.7-11.7); PLATELET CLUMPS FLAG 0 (0-99); PLATELET COUNT 315 10^3/uL (150-400); RED BLOOD CELL COUNT 3.72 10^6/uL (4.18-5.33); RED CELL DISTRIBUTION WIDTH 17.5 % (11.5-15.2)
[2017-04-02 05:57] LABS: ANION GAP 6 mEq/L (8-16); CALCIUM 9.3 mg/dL (8.5-10.4); CARBON DIOXIDE 28 mEq/l (22-31); CHLORIDE 109 mEq/L (97-110); CREATININE 0.7 mg/dL (0.6-1.0); GLOMERULAR FILTRATION RATE > 60; GLUCOSE 101 mg/dL (70-100); POTASSIUM 3.2 mEq/L (3.5-5.2); SODIUM 143 mEq/L (134-144)
[2017-04-02] MEDS ORDERED: PROTOCOL MAGNESIUM 1 DOSE IV PRN (09:01)
[2017-04-02] MEDS ORDERED: PROTOCOL POTASSIUM 1 DOSE MISC PRN (09:01)
[2017-04-02] MEDS ORDERED: POTASSIUM CL 10 MEQ TAB PO ONE ×2 (09:30→19:17)
[2017-04-02] MEDS: VANCOMYCIN 1.25 GM in D5W 250 ML IV SCH (09:31)
[2017-04-02] MEDS: predniSONE 20 MG TAB PO SCH (09:42)
[2017-04-02] MEDS: MULTIVITAMINS 1 EACH TAB PO SCH (09:43)
[2017-04-02] MEDS: traMADol 50 MG TAB PO PRN ×2 (09:57→15:04)
[2017-04-02] MEDS ORDERED: LACTULOSE 20 GM/30 ML UDCUP PO PRN (10:53)
[2017-04-02] MEDS ORDERED: MAGNESIUM HYDROXIDE 30 ML UDCUP PO PRN (10:53)
[2017-04-02] MEDS ORDERED: BISACODYL 10 MG SUPP PR PRN (10:53)
[2017-04-02] MEDS ORDERED: POLYETHYLENE GLYCOL 3350 17 GM PKT PO PRN (10:53)
--- NOTE | 2017-04-02 14:21 | PCMIDPN ---
Assessment/Plan: Assessment/Plan: 1. Right Psoas abscess and Empyema secondary to MSSA - Cx reports corrected and i also spoke to micro to confirm. no longer ID'd as MRSA and is indeed MSSA - Will change vanco to Ancef -f/u CXr pending - blood cx so far ngtd -Will likely need surgical consult for possible VATS. Meds vanco Subjective: afebrile. feels better overall. less sob. able to take deeper breaths but this is still hard. less cough. lewss abdominal pain. no diarrhea. Objective: Vital Signs Temp Pulse Resp BP Pulse Ox 36.6 C 83 16 126/80 H 97 04/02/17 07:27 04/02/17 11:07 04/02/17 11:07 04/02/17 11:07 04/02/17 11:07 Microbiology 03/29/17 Unknown Gram Stain - Final Pelvis - Aspirate 03/31/17 12:40 Gram Stain - Final Thoracic Fluid - Aspirate Laboratory Results 04/02/17 05:20 04/02/17 05:20 04/01/17 04/02/17 04/03/17 05:59 05:59 05:59 Intake Total 400 900 Output Total 270 250 50 Balance 130 650 -50 - Physical Exam General Appearance: alert, no apparent distress Respiratory: other (decrased bs on right . pigtail catheter noted) Cardiac/Chest: regular rate, rhythm Extremities: No swelling Abdomen: normal bowel sounds, non-tender, soft, No distended ICD10 Worksheet Patient Problems: Problems Problem Status Onset Abdominal cyst Acute Facial cellulitis Acute Pleural effusion Acute
[2017-04-02] MEDS: ceFAZolin 2 GM/DEXTROSE 100 ML IV SCH ×2 (14:57→22:09)
[2017-04-02 18:32] LABS: POTASSIUM 3.6 mEq/L (3.5-5.2)
--- NOTE | 2017-04-02 19:24 | HOSPPROG ---
Hospitalist Progress Note Assessment/Plan: # R psoas abscess s/p percutaneous drainage with R LL empyema - MSSA - changed vanco to Ancef per ID, revwd care with ID # R pleural effusion - empyema - s/p 6f pigtail CT - ? if will be adequate to drain/resolve - options include large bore CT vs VATS (Dr Green consulted prev, may need to re-eval) - PICC -repeat CXR ordered # R facial erythema - resolved; d/t Lupus? # lupus - cont MMF, taper pred in process; follow closely for adrenal insufficiency with ongoing procedures # chronic immunosuppression # leukocytosis - combination of steroids and inflammation FULL CODE Dispo > 2 mdnts due to ongoing empyema/abscess drainage and infection Subjective: Feeling better overall. Denies n/v. + constipation, bowel protocol started. No CP/SOB. Objective: Vital Signs Temp Pulse Resp BP Pulse Ox 97.9 F 85 16 105/68 99 04/02/17 15:20 04/02/17 15:20 04/02/17 15:20 04/02/17 15:20 04/02/17 15:20 Microbiology 03/31/17 12:40 Gram Stain - Final Thoracic Fluid - Aspirate Body Fluid Culture - Final Staphylococcus Aureus 03/29/17 Unknown Gram Stain - Final Pelvis - Aspirate Laboratory Results 04/02/17 05:20 04/02/17 18:15 04/01/17 04/02/17 04/03/17 11:59 11:59 11:59 Intake Total 400 900 Output Total 290 280 50 Balance 110 620 -50 PT 15.5 SEC (12.0-15.0) H 03/30/17 14:15 INR 1.23 (0.83-1.16) H 03/30/17 14:15 - Time Spent With Patient Time Spent with Patient: greater than 35 minutes Time Spent with Patient: Greater than 35 minutes spent on this patients care, greater than 50% of time spent counseling, educating, and coordinating care regarding the above mentioned plan. - Pending Discharge Pending Discharge Within 48 Hours: No - Physical Exam Constitutional: no apparent distress, appears nourished, not in pain Eyes: PERRL, anicteric sclera, EOMI Ears, Nose, Mouth, Throat: moist mucous membranes, hearing normal Cardiovascular: regular rate and rhythym, no murmur, rub, or gallop, No edema Respiratory: no respiratory distress, no rales or rhonchi, other (decreased RLL breath sounds, drain intact with serous fluid in bulb) Gastrointestinal: normoactive bowel sounds, soft, non-tender abdomen, no palpable masses Skin: no rashes or abrasions, no fluctuance, no induration Psychiatric: interacting appropriately, not anxious, not encephalopathic, thought process linear ICD10 Worksheet Patient Problems: Problems Problem Status Onset Pleural effusion Acute Facial cellulitis Acute Abdominal cyst Acute
[2017-04-02] MEDS: MYCOPHENOLATE MOFETIL 250 MG CAP PO SCH (20:16)
[2017-04-02] MEDS: HYDROXYCHLOROQUINE SULFATE 200 MG TAB PO SCH (20:16)
[2017-04-02] MEDS: SENNOSIDES/DOCUSATE SODIUM TAB PO SCH (20:16)
[2017-04-03] MEDS: ceFAZolin 2 GM/DEXTROSE 100 ML IV SCH ×3 (05:19→21:12)
[2017-04-03 05:29] LABS: HEMATOCRIT 33.9 % (38.0-47.0); HEMOGLOBIN 10.3 g/dL (12.6-16.3); MEAN CELL HEMOGLOBIN 24.6 pg (27.9-34.1); MEAN CELL HEMOGLOBIN CONCENTR. 30.4 g/dL (32.4-36.7); MEAN CELL VOLUME 80.9 fL (81.5-99.8); RED BLOOD CELL COUNT 4.19 10^6/uL (4.18-5.33); RED CELL DISTRIBUTION WIDTH 17.2 % (11.5-15.2)
[2017-04-03 05:57] LABS: ANION GAP 8 mEq/L (8-16); CARBON DIOXIDE 26 mEq/l (22-31); CHLORIDE 107 mEq/L (97-110); CREATININE 0.8 mg/dL (0.6-1.0); GLOMERULAR FILTRATION RATE > 60; GLUCOSE 73 mg/dL (70-100); MAGNESIUM 1.8 mg/dL (1.6-2.3); POTASSIUM 3.5 mEq/L (3.5-5.2); SODIUM 141 mEq/L (134-144)
[2017-04-03] MEDS ORDERED: POTASSIUM CL 10 MEQ TAB PO ONE ×2 (06:59→19:21)
[2017-04-03] MEDS ORDERED: MAGNESIUM SULF 1 GM/DEXTROSE 100 ML IV ONE (07:00)
[2017-04-03] MEDS: predniSONE 20 MG TAB PO SCH (08:21)
[2017-04-03] MEDS: MULTIVITAMINS 1 EACH TAB PO SCH (08:21)
[2017-04-03] MEDS: SENNOSIDES/DOCUSATE SODIUM TAB PO SCH ×2 (08:23→21:10)
[2017-04-03] MEDS: traMADol 50 MG TAB PO PRN ×2 (14:07→21:17)
--- NOTE | 2017-04-03 17:54 | PCMIDPN ---
Assessment/Plan: Assessment: MSSA (sensitivity panel amended by microbiology) psoas abscess with right-sided exudate of pleural effusion. MSSA also from fluid culture from the chest cavity. Currently being covered on cefazolin. Will follow the fluid cultures forward. Also follow up on blood cultures. Clinically the patient has improved stability today. Still concerned about increased drainage from the right chest tube. Query whether larger chest tube or thoracoscopy required Plan: 1. Continue IV cefazolin. 2. Follow up on right pleural effusion. Awaiting formal surgical opinion. 3. Follow clinical course. Subjective: Patient is clinically feeling well. She is resting in her hospital bed. She has no new complaints. She has some concern about the amount of fluid coming from her right chest tube. No continued fevers or chills. Objective: Cefazolin # 1 Vital Signs Temp Pulse Resp BP Pulse Ox 36.7 C 90 16 108/70 99 04/03/17 15:03 04/03/17 15:03 04/03/17 15:03 04/03/17 15:03 04/03/17 15:03 Microbiology 03/29/17 Unknown Gram Stain - Final Pelvis - Aspirate 03/31/17 12:40 Gram Stain - Final Thoracic Fluid - Aspirate Body Fluid Culture - Final Staphylococcus Aureus Laboratory Results 04/03/17 05:20 04/02/17 04/03/17 04/04/17 05:59 05:59 05:59 Intake Total 900 600 Output Total 250 190 155 Balance 650 410 -155 - Physical Exam General Appearance: WD/WN, alert, no apparent distress, non-toxic Respiratory: normal breath sounds, No lungs clear (Decreased breath sounds right lower lobe), No respiratory distress Cardiac/Chest: regular rate, rhythm, No tachycardia Abdomen: non-tender, soft Skin: normal color, warm/dry, rash (Increased intensity of malar rash over her face.) Neuro/Psych: alert, normal mood/affect, oriented x 3 ICD10 Worksheet Patient Problems: Problems Problem Status Onset Abdominal cyst Acute Facial cellulitis Acute Pleural effusion Acute
[2017-04-03 18:05] LABS: POTASSIUM 3.7 mEq/L (3.5-5.2)
[2017-04-03] MEDS: HYDROXYCHLOROQUINE SULFATE 200 MG TAB PO SCH (21:09)
[2017-04-03] MEDS: MYCOPHENOLATE MOFETIL 250 MG CAP PO SCH (21:10)
[2017-04-04] MEDS: ceFAZolin 2 GM/DEXTROSE 100 ML IV SCH ×3 (05:38→21:52)
[2017-04-04 05:49] LABS: HEMATOCRIT 32.3 % (38.0-47.0); HEMOGLOBIN 9.9 g/dL (12.6-16.3); MEAN CELL HEMOGLOBIN 24.5 pg (27.9-34.1); MEAN CELL HEMOGLOBIN CONCENTR. 30.7 g/dL (32.4-36.7); RED BLOOD CELL COUNT 4.04 10^6/uL (4.18-5.33); RED CELL DISTRIBUTION WIDTH 17.4 % (11.5-15.2)
[2017-04-04 06:26] LABS: ANION GAP 8 mEq/L (8-16); CALCIUM 9.4 mg/dL (8.5-10.4); CARBON DIOXIDE 27 mEq/l (22-31); CHLORIDE 105 mEq/L (97-110); CREATININE 0.8 mg/dL (0.6-1.0); GLOMERULAR FILTRATION RATE > 60; GLUCOSE 65 mg/dL (70-100); POTASSIUM 3.8 mEq/L (3.5-5.2); SODIUM 140 mEq/L (134-144)
--- NOTE | 2017-04-04 07:09 | PDCONSULT ---
Shuttlecock Assembler Note: lAma is resting comfortably and feels better. I was asked by Dr. Felton to reassess her right thoracic drainage for Staph empyema She is afebrile a not requiring supplemental O2. Lungs: diminished right base o /w clear chest drainage remains purulent CXR persistant loculated lateral fluid collection vs.pleural thickening. I recommended a repeat CT to assess. If significant loculated fluid pockets are present I would proceed with VATS decortication. Harini Green MD, FACS
[2017-04-04] MEDS: MULTIVITAMINS 1 EACH TAB PO SCH (07:35)
[2017-04-04] MEDS: SENNOSIDES/DOCUSATE SODIUM TAB PO SCH ×2 (07:35→21:52)
[2017-04-04] MEDS: predniSONE 20 MG TAB PO SCH (07:35)
--- NOTE | 2017-04-04 07:49 | HOSPPROG ---
Hospitalist Progress Note Assessment/Plan: # R psoas abscess s/p percutaneous drainage with R LL empyema - MSSA - Ancef per PICC, revwd care with ID Dr Felton # R pleural effusion - empyema - s/p 6f pigtail CT - ? if will be adequate to drain/resolve - options include large bore CT vs VATS (Dr Green asked to re-eval by Dr Felton) # R facial erythema - resolved; d/t Lupus? # lupus - cont MMF, taper pred in process; follow closely for adrenal insufficiency with ongoing procedures # chronic immunosuppression # leukocytosis - combination of steroids and inflammation #anemia-stable FULL CODE Dispo > 2 mdnts due to ongoing empyema/abscess drainage and infection Subjective: LATE NOTE FROM ROUNDS 04/02/2017. Feels well. No n/v/d. Eating/ ambulating OK. Some discomfort from drains, but overall better. Objective: Vital Signs Temp Pulse Resp BP Pulse Ox 98.4 F 86 16 128/84 H 95 04/04/17 07:35 04/04/17 07:35 04/04/17 07:35 04/04/17 07:35 04/04/17 07:35 Microbiology 03/29/17 Unknown Gram Stain - Final Pelvis - Aspirate Laboratory Results 04/04/17 05:40 04/04/17 05:40 04/02/17 04/03/17 04/04/17 11:59 11:59 11:59 Intake Total 900 600 220 Output Total 280 265 40 Balance 620 335 180 PT 15.5 SEC (12.0-15.0) H 03/30/17 14:15 INR 1.23 (0.83-1.16) H 03/30/17 14:15 - Physical Exam Constitutional: no apparent distress, appears nourished, not in pain Eyes: PERRL, anicteric sclera, EOMI Ears, Nose, Mouth, Throat: moist mucous membranes Cardiovascular: regular rate and rhythym, no murmur, rub, or gallop, No edema Respiratory: no respiratory distress, no rales or rhonchi, other (decreased BS R LL/base, drains intact) Gastrointestinal: normoactive bowel sounds, soft, non-tender abdomen, no palpable masses Skin: warm Psychiatric: interacting appropriately, not anxious, not encephalopathic, thought process linear ICD10 Worksheet Patient Problems: Problems Problem Status Onset Abdominal cyst Acute Facial cellulitis Acute Pleural effusion Acute
[2017-04-04] MEDS ORDERED: POTASSIUM CL 10 MEQ TAB PO ONE (08:31)
[2017-04-04] MEDS ORDERED: IOPAMIDOL (ISOVUE-300) 100 ML BTL ONE (09:11)
--- NOTE | 2017-04-04 13:12 | HOSPPROG ---
Hospitalist Progress Note Assessment/Plan: # R psoas abscess s/p percutaneous drainage with R LL empyema * Methicillin sensitive Staph aureus * On IV Ancef # R pleural effusion - empyema * Repeat CT scan shows residual fluid collections * Probably will go to VATS tomorrow # R facial erythema - resolved; d/t Lupus? # lupus - cont MMF, taper pred in process; follow closely for adrenal insufficiency with ongoing procedures # chronic immunosuppression # leukocytosis - combination of steroids and inflammation #anemia-stable * DVT prophylaxis * Start after surgery Subjective: No new complaints Objective: Vital Signs Temp Pulse Resp BP Pulse Ox 36.9 C 86 16 128/84 H 95 04/04/17 07:35 04/04/17 07:35 04/04/17 07:35 04/04/17 07:35 04/04/17 07:35 Microbiology 03/29/17 Unknown Gram Stain - Final Pelvis - Aspirate Laboratory Results 04/04/17 05:40 04/04/17 05:40 04/03/17 04/04/17 04/05/17 05:59 05:59 05:59 Intake Total 600 220 Output Total 190 165 Balance 410 55 PT 15.5 SEC (12.0-15.0) H 03/30/17 14:15 INR 1.23 (0.83-1.16) H 03/30/17 14:15 CT scan personally viewed interpreted. Discussed with surgery - Physical Exam Constitutional: no apparent distress, appears nourished, not in pain Eyes: anicteric sclera, EOMI Ears, Nose, Mouth, Throat: moist mucous membranes, hearing normal, ears appear normal Cardiovascular: regular rate and rhythym, no murmur, rub, or gallop Respiratory: no respiratory distress, no rales or rhonchi, clear to auscultation , reduced air movement (Right base) Gastrointestinal: normoactive bowel sounds, soft, non-tender abdomen, no palpable masses Skin: warm Neurologic: AAOx3 Psychiatric: interacting appropriately, not anxious, not encephalopathic, thought process linear ICD10 Worksheet Patient Problems: Problems Problem Status Onset Abdominal cyst Acute Facial cellulitis Acute Pleural effusion Acute
--- NOTE | 2017-04-04 14:44 | PDCONSULT ---
Muffler Hand Note: I reviewed Alma's CT and she has significant undrained fluid in the right chest with likely lung entrapment. I have recommended VATS decortication for this complicated empyema. The psoas abscess is resolving on CT of the abdomen Surgery will be scheduled for noon tomorrow S MD Peter, FACS
--- NOTE | 2017-04-04 17:49 | PCMIDPN ---
Assessment/Plan: Assessment: MSSA (sensitivity panel amended by microbiology) psoas abscess with right-sided exudate of pleural effusion. MSSA also from fluid culture from the chest cavity. Currently being covered on cefazolin. Will follow the fluid cultures forward. Also follow up on blood cultures. Clinically the patient remains stable however repeat CT scan shows continued complex multiloculated fluid collection in the right-sided chest cavity. Discussed with surgery. Suspect VATS will follow. Plan: 1. Continue IV cefazolin. 2. Follow up on right pleural effusion. 3. Follow clinical course. 04/04/17 18:43 Subjective: Patient is resting in her hospital bed. She states that she is feeling okay. Denies worsening shortness of breath or cough. No fevers or chills. Objective: Cefazolin #2 Vital Signs Temp Pulse Resp BP Pulse Ox 36.8 C 89 14 128/85 H 91 L 04/04/17 15:06 04/04/17 15:06 04/04/17 15:06 04/04/17 15:06 04/04/17 15:06 Microbiology 03/29/17 Unknown Gram Stain - Final Pelvis - Aspirate Laboratory Results 04/04/17 05:40 04/04/17 05:40 04/03/17 04/04/17 04/05/17 05:59 05:59 05:59 Intake Total 600 220 Output Total 190 165 55 Balance 410 55 -55 - Physical Exam General Appearance: WD/WN, alert, no apparent distress, non-toxic Respiratory: bronchial breath sounds, No lungs clear, No normal breath sounds, No respiratory distress Cardiac/Chest: regular rate, rhythm, No tachycardia Extremities: non-tender, normal inspection Skin: normal color, warm/dry, No rash Neuro/Psych: alert, normal mood/affect, oriented x 3 ICD10 Worksheet Patient Problems: Problems Problem Status Onset Abdominal cyst Acute Facial cellulitis Acute Pleural effusion Acute
[2017-04-04] MEDS: MYCOPHENOLATE MOFETIL 250 MG CAP PO SCH (21:47)
[2017-04-04] MEDS: HYDROXYCHLOROQUINE SULFATE 200 MG TAB PO SCH (21:47)
[2017-04-05] MEDS: ceFAZolin 2 GM/DEXTROSE 100 ML IV SCH ×3 (05:36→19:30)
[2017-04-05 05:44] LABS: ADD DIFF? YES; ADD MORPH? NO; ADD SCAN? NO; ATYPICAL LYMPHOCYTE FLAG 0 (0-99); FRAGMENT RBC FLAG 0 (0-99); HEMATOCRIT 33.5 % (38.0-47.0); HEMOGLOBIN 10.3 g/dL (12.6-16.3); LEFT SHIFT FLG 30 (0-99); LIPEMIA HEMOLYSIS FLAG 80 (0-99); MEAN CELL HEMOGLOBIN 24.4 pg (27.9-34.1); MEAN CELL HEMOGLOBIN CONCENTR. 30.7 g/dL (32.4-36.7); MEAN CELL VOLUME 79.4 fL (81.5-99.8); MEAN PLATELET VOLUME 9.4 fL (8.7-11.7); PLATELET CLUMPS FLAG 0 (0-99); PLATELET COUNT 279 10^3/uL (150-400); RED BLOOD CELL COUNT 4.22 10^6/uL (4.18-5.33); RED CELL DISTRIBUTION WIDTH 17.5 % (11.5-15.2)
[2017-04-05 06:11] LABS: ELLIPTOCYTES 1+; HYPOCHROMIA 1+; MICROCYTES 1+; PLATELET ESTIMATE ADEQUATE (ADEQ)
[2017-04-05 06:13] LABS: ALANINE AMINOTRANSFERASE 34 IU/L (9-52); ALBUMIN 2.2 g/dL (3.5-5.0); ALKALINE PHOSPHATASE 213 IU/L (38-126); ANION GAP 8 mEq/L (8-16); ASPARTATE AMINOTRANSFERASE 26 IU/L (14-46); BILIRUBIN,TOTAL 0.5 mg/dL (0.1-1.4); CALCIUM 9.2 mg/dL (8.5-10.4); CARBON DIOXIDE 30 mEq/l (22-31); CHLORIDE 104 mEq/L (97-110); CREATININE 0.8 mg/dL (0.6-1.0); GLOMERULAR FILTRATION RATE > 60; GLUCOSE 71 mg/dL (70-100); POTASSIUM 4.1 mEq/L (3.5-5.2); SODIUM 142 mEq/L (134-144); TOTAL PROTEIN 4.7 g/dL (6.3-8.2)
[2017-04-05] MEDS ORDERED: BUPIVACAINE/EPI 0.5% 30 ML SDV ONE (07:36)
[2017-04-05] MEDS: SENNOSIDES/DOCUSATE SODIUM TAB PO SCH ×2 (08:10→19:37)
[2017-04-05] MEDS: MULTIVITAMINS 1 EACH TAB PO SCH (08:10)
--- NOTE | 2017-04-05 08:28 | PDCONSULT ---
Matrix Drier Tender Note: I discussed the findings on CT with Alma and recommended proceeding with right VATS/thoracoscopic decortication and drainage of empyema. We discussed the procedure, expected recovery and informed consent was obtained. Tri Green MD, FACS
[2017-04-05] MEDS: predniSONE 20 MG TAB PO SCH (09:04)
--- NOTE | 2017-04-05 10:32 | PCMIDPN ---
Assessment/Plan: 1. Right lung empyema secondary to MSSA: To have VATS today. assistance greatly appreciated! Continue cefazolin as is. 2. Right psoas abscess secondary to MSSA status post drainage on March 29 by interventional Radiology: 300 cc of purulence was initially drained, but the output has diminished substantially over the past 24 hours. Suspect she will need a drain study, perhaps tomorrow. On cefazolin as per the above. Subjective: In good spirits. VATS of the right lung empyema today. No diarrhea, shortness of breath, nausea or vomiting. No rigors or shaking chills. Objective: T-max 37.7degrees Ancef 2 g IV q.8 hours day 3 Vital Signs Temp Pulse Resp BP Pulse Ox 37.7 C 97 16 102/67 94 04/05/17 10:22 04/05/17 10:22 04/05/17 10:22 04/05/17 10:22 04/05/17 10:22 Microbiology 03/29/17 Unknown Gram Stain - Final Pelvis - Aspirate Laboratory Results 04/05/17 05:30 04/05/17 05:30 04/04/17 04/05/17 04/06/17 05:59 05:59 05:59 Intake Total 220 Output Total 165 167 Balance 55 -167 March 29 blood cultures x2 negative March 29 psoas abscess: 4+ MSSA - Physical Exam General Appearance: alert, no apparent distress EENT: pharynx normal, No thrush Respiratory: other (Small pigtail catheter right chest, full of yellow serous fluid. Diminished breath sounds right base) Extremities: other (PICC line right upper extremity looks fine.) Abdomen: non-tender, soft Skin: No rash ICD10 Worksheet Patient Problems: Problems Problem Status Onset Abdominal cyst Acute Facial cellulitis Acute Pleural effusion Acute
[2017-04-05] MEDS ORDERED: LR 1,000 ML IV ONE (11:03)
--- NOTE | 2017-04-05 11:33 | PDANEPAE ---
ANE History of Present Illness 46 yo F here with empyema, for VATS ANE Past Medical History - Cardiovascular History Hx Hypertension: No Hx Arrhythmias: No Hx Chest Pain: No Hx Coronary Artery / Peripheral Vascular Disease: No - Pulmonary History Hx Oxygen in Use at Home: No Hx Sleep Apnea: No Sleep Apnea Screening Result - Last Documented: Negative - Endocrine History Hx Diabetes: No - GI History GERD: mild (controlled with meds) - Other Health History Other Health History: SLE - Chronic Pain History Chronic Pain: Yes ANE Review of Systems Review of systems is: negative - Exercise capacity Exercise capacity: >=4 METS ANE Patient History - Allergies Allergies/Adverse Reactions: No Known Allergies Allergy (Unverified 03/29/17 11:47) - Home Medications Home medications: home medication list seen and reviewed Home Medications: Herbals/Supplements -Info Only 1 ea PO DAILY 03/29/17 [Last Taken Unknown] Hydroxychloroquine Sulfate [Plaquenil 200 mg (*)] 400 mg PO HS 03/29/17 [Last Taken 03/28/17] Multivitamins [Multivitamin (*)] 1 each PO DAILY 03/29/17 [Last Taken 03/29/17] Mycophenolate Mofetil [Cellcept] 1,000 mg PO HS 03/29/17 [Last Taken 03/28/17] Omeprazole [Prilosec 20 mg] 20 mg PO DAILY PRN 03/29/17 [Last Taken Unknown] predniSONE 5 - 15 mg PO DAILY 03/29/17 [Last Taken 03/29/17 30mg] traMADol [Ultram 50 mg (*)] 50 mg PO Q4 PRN 03/29/17 [Last Taken Unknown] - NPO status NPO Status: no food or drink >8 hours NPO Since - Liquids (Date): 04/05/17 NPO Since - Liquids (Time): 12:00 NPO Since - Solids (Date): 04/05/17 NPO Since - Solids (Time): 12:00 - Anes Hx Anes Hx: no prior problems - Smoking Hx Smoking Status: Former smoker - Alcohol Use Alcohol Use: None - Family Anes Hx Family Anes Hx: none ANE Labs/Vital Signs - Labs Result Diagrams: 04/05/17 05:30 04/05/17 05:30 - Vital Signs Blood Pressure: 106/58 Heart Rate: 93 Respiratory Rate: 16 O2 Sat (%): 94 Height: 170.69 cm Weight: 88.961 kg ANE Physical Exam - Airway Neck exam: FROM Mallampati Score: Class 1 Mouth exam: poor dentition (misssing several teeth) Mouth image: missing - Pulmonary Pulmonary: reduced air movement (decreased BS R side), other - Cardiovascular Cardiovascular: regular rate and rhythym - ASA Status ASA Status: III ANE Anesthesia Plan Anesthesia Plan: general endotracheal anesthesia Specialized Airway: double lumen tube
[2017-04-05] MEDS ORDERED: MIDAZOLAM 2 MG/2 ML VIAL IVP ONE (11:35)
[2017-04-05] MEDS ORDERED: PROPOFOL 200 MG/20 ML VIAL ONE ×2 (12:17)
[2017-04-05] MEDS ORDERED: fentaNYL 100 MCG/2 ML INJ ONE ×3 (12:17→15:56)
[2017-04-05] MEDS ORDERED: ceFAZolin 1 GM VIAL ONE ×2 (13:12)
--- NOTE | 2017-04-05 13:55 | HOSPPROG ---
Hospitalist Progress Note Assessment/Plan: # R psoas abscess s/p percutaneous drainage with R LL empyema * Methicillin sensitive Staph aureus * On IV Ancef # R pleural effusion - empyema * Repeat CT scan shows residual fluid collections * VATS today # R facial erythema - resolved; d/t Lupus? # lupus - cont MMF, taper pred in process; follow closely for adrenal insufficiency with ongoing procedures # chronic immunosuppression # leukocytosis - combination of steroids and inflammation #anemia-stable * DVT prophylaxis * Start after surgery Subjective: pt is getting VATS Objective: Vital Signs Temp Pulse Resp BP Pulse Ox 37.2 C 93 16 106/58 L 94 04/05/17 10:40 04/05/17 11:35 04/05/17 11:35 04/05/17 11:35 04/05/17 11:35 Microbiology 03/29/17 Unknown Gram Stain - Final Pelvis - Aspirate Laboratory Results 04/05/17 05:30 04/05/17 05:30 04/04/17 04/05/17 04/06/17 05:59 05:59 05:59 Intake Total 220 Output Total 165 167 Balance 55 -167 PT 15.5 SEC (12.0-15.0) H 03/30/17 14:15 INR 1.23 (0.83-1.16) H 03/30/17 14:15 discussed with ID ICD10 Worksheet Patient Problems: Problems Problem Status Onset Abdominal cyst Acute Facial cellulitis Acute Pleural effusion Acute
[2017-04-05] MEDS ORDERED: HYDROmorphONE/DILAUDID 2 MG/ML INJ ONE (15:09)
[2017-04-05] MEDS ORDERED: fentaNYL 100 MCG/2 ML INJ IVP PRN (15:31)
[2017-04-05] MEDS ORDERED: NALOXONE HCL 0.4 MG/ML INJ IVP PRN ×3 (15:31→16:36)
[2017-04-05] MEDS ORDERED: PROMETHAZINE HCL 25 MG/ML INJ IVP PRN (15:31)
[2017-04-05] MEDS ORDERED: HYDROmorphONE/DILAUDID 1 MG/ML SYR IVP PRN (15:31)
[2017-04-05] MEDS ORDERED: MEPERIDINE 25 MG/ML SYR IVP PRN (15:31)
[2017-04-05] MEDS ORDERED: ONDANSETRON 4 MG/2 ML VIAL IVP PRN (15:31)
[2017-04-05] MEDS ORDERED: ACETAMINOPHEN 500 MG TAB PO PRN (15:31)
[2017-04-05] MEDS: fentaNYL 100 MCG/2 ML INJ IVP PRN ×2 (16:01→16:08)
--- NOTE | 2017-04-05 16:08 | POSTANESTH ---
Post Anesthetic Evaluation Cardiovascular Status: Normal, Stable, Similar to Pre-Op Cond Respiratory Status: Normal, Stable, Similar to Pre-op Cond. Level of Consciousness/Mental Status: Can Participate in Eval, Mildly Sleepy, Arousable Pain Control: Adequate, Prn Tx Ordered Nausea/Vomiting Control: Adequate, Prn Tx Ordered Complications Possibly Related to Anesthesia: None Noted
[2017-04-05] MEDS ORDERED: HYDROmorphONE/DILAUDID 1 MG/ML SYR ONE ×3 (16:13→17:13)
[2017-04-05] MEDS: HYDROmorphONE/DILAUDID 1 MG/ML SYR IVP PRN ×3 (16:18→16:51)
--- NOTE | 2017-04-05 16:51 | POSTOPPROG ---
Post Op Note Date of Operation: 04/05/17 Surgeon: Rai Green Anesthesiologist: Jaron Joshi MD Anesthesia: GET(General Endotracheal) Pre-op Diagnosis: right empyema thoracis Post-op Diagnosis: same Procedure: Right thoracoscopic decortication and drainage empyema Inf/Abcess present in the surg proc area at time of surgery?: Yes Depth: Organ Space EBL: 50-100 (50 ml) Drains: Other (#[address]) Specimen(s): fibrinous rind for culture and permanent section [id number] Jose E Green MD, FACS
--- NOTE | 2017-04-05 17:17 | GOP ---
[f rep st] OPERATIVE REPORT DATE OF OPERATION: 04/05/2017 SURGEON: Rai Green MD, FACS FASHION CONSULTANT SALES: DANNY Bryant. ANESTHESIA: General endotracheal. ANESTHESIOLOGIST: Jaron Joshi MD. PREOPERATIVE DIAGNOSIS: Empyema thoracis, right. POSTOPERATIVE DIAGNOSIS: Empyema thoracis, right. PROCEDURE PERFORMED: Right VATS with complete pulmonary decortication and drainage of empyema. FINDINGS: Fibrinopurulent exudate encasing the right upper, middle and lower lobes. SPECIMENS: Submitted for aerobic and anaerobic culture, as well as permanent section. ESTIMATED BLOOD LOSS: 50 mL. DESCRIPTION OF PROCEDURE: After informed consent was obtained, the patient was brought to the operating room and placed under general anesthesia via double- lumen endotracheal tube. Position was confirmed by bronchoscopy. The patient was then turned onto her left side, carefully padding all pressure points, and was secured on the table with a boyd bag and gel pads. The right chest was prepped and draped in usual fashion. Before proceeding, a time-out identification of the patient was performed. Then 0.25% Marcaine was used to infiltrate all incisions sites. A 15 mm incision was made in the 5th intercostal space at anterior axillary line, and a thoracoscopic trocar was placed into the chest. The lung was deflated, and an additional 5 mm port was placed posterior to the scapula in the 7th intercostal space. Using these 2 ports, initially the fibrinopurulent exudate on the lung was decorticated using the suction shop mechanic helper as well as ringed forceps. The larger portion of tissue was removed through the 15 mm port site and, as we progressed, it was clear that most of the exudate was on the visceral pleura, though some was adherent to the parietal pleura. Complete decortication required additional ports placed in the 3rd intercostal space posteriorly as well as in the 7th intercostal space anteriorly. Moving the camera from port to port allowed me to visualize the various quadrants of the chest cavity and, slowly and carefully, the remainder of the lung was decorticated and the fibrinous rind was extracted through the larger port site. Hemostasis appeared secure upon completion. The chest cavity was irrigated with saline, and additional portions of the rind were removed as they were visualized. Once the lung had been fully decorticated down to the lower lobe, a #36-Czech chest tube was brought through the anterior axillary line 15 mm port site and secured to the skin with 0 silk suture. The lung was re-expanded under visualization, and no air leak was noted. Chest tube was secured to a Pleur-evac. The remaining incisions were closed with 4-0 Monocryl suture for the skin. Mastisol and Steri-Strips and sterile dressings were applied. The patient was returned extubated to the recovery room in satisfactory condition. Needle, sponge and instrument counts correct. COMPLICATIONS: None. /[id number]/MODL MTDD
[2017-04-05] MEDS: LR 1,000 ML IV SCH (18:25)
[2017-04-05] MEDS: HYDROCODONE/APAP 5/325 TAB PO PRN (19:28)
[2017-04-05] MEDS: MYCOPHENOLATE MOFETIL 250 MG CAP PO SCH (19:28)
[2017-04-05] MEDS: HYDROXYCHLOROQUINE SULFATE 200 MG TAB PO SCH (21:28)
[2017-04-06] MEDS: HYDROCODONE/APAP 5/325 TAB PO PRN ×3 (02:25→20:07)
[2017-04-06] MEDS: PANTOPRAZOLE SODIUM 40 MG TAB PO PRN ×2 (02:52→20:06)
[2017-04-06] MEDS: HYDROmorphONE/DILAUDID 6 MG/30 ML PCA IV PRN ×2 (02:52→14:10)
[2017-04-06] MEDS: LR 1,000 ML IV SCH ×2 (05:59→06:05)
[2017-04-06] MEDS: ceFAZolin 2 GM/DEXTROSE 100 ML IV SCH ×3 (05:59→21:49)
[2017-04-06 06:32] LABS: ADD DIFF? YES; ADD MORPH? NO; ADD SCAN? NO; ATYPICAL LYMPHOCYTE FLAG 0 (0-99); FRAGMENT RBC FLAG 20 (0-99); HEMATOCRIT 29.5 % (38.0-47.0); LEFT SHIFT FLG 20 (0-99); LIPEMIA HEMOLYSIS FLAG 80 (0-99); MEAN CELL HEMOGLOBIN 24.4 pg (27.9-34.1); MEAN CELL HEMOGLOBIN CONCENTR. 30.5 g/dL (32.4-36.7); MEAN CELL VOLUME 79.9 fL (81.5-99.8); MEAN PLATELET VOLUME 10.3 fL (8.7-11.7); PLATELET CLUMPS FLAG 10 (0-99); PLATELET COUNT 271 10^3/uL (150-400); RED BLOOD CELL COUNT 3.69 10^6/uL (4.18-5.33); RED CELL DISTRIBUTION WIDTH 17.4 % (11.5-15.2)
[2017-04-06 06:40] LABS: ALANINE AMINOTRANSFERASE 27 IU/L (9-52); ALBUMIN 2.2 g/dL (3.5-5.0); ALKALINE PHOSPHATASE 171 IU/L (38-126); ANION GAP 9 mEq/L (8-16); ASPARTATE AMINOTRANSFERASE 24 IU/L (14-46); BILIRUBIN,TOTAL 0.6 mg/dL (0.1-1.4); CALCIUM 9.2 mg/dL (8.5-10.4); CARBON DIOXIDE 27 mEq/l (22-31); CHLORIDE 101 mEq/L (97-110); CREATININE 0.8 mg/dL (0.6-1.0); GLOMERULAR FILTRATION RATE > 60; GLUCOSE 103 mg/dL (70-100); POTASSIUM 4.6 mEq/L (3.5-5.2); SODIUM 137 mEq/L (134-144); TOTAL PROTEIN 4.7 g/dL (6.3-8.2)
--- NOTE | 2017-04-06 07:12 | PDCONSULT ---
Finish Sander Note: Alma is resting more comfortably, but had considerable incisional pain after VATS CT output is serosanguinous 140ml/no air leak noted. CT placed to H20 seal. CT entry site uncomplicated CXR shallow CT placement/lung expanded with improved volume Imp: s/p VATS decortication right lung 04/05 Rec: CT to water seal monitor CT output, serial CXR S MD Peter, FACS
[2017-04-06 07:22] LABS: ELLIPTOCYTES 1+; HYPOCHROMIA 1+; MICROCYTES 1+; PLATELET ESTIMATE ADEQUATE (ADEQ)
[2017-04-06] MEDS: predniSONE 20 MG TAB PO SCH (08:22)
[2017-04-06] MEDS: MULTIVITAMINS 1 EACH TAB PO SCH (08:23)
[2017-04-06] MEDS: SENNOSIDES/DOCUSATE SODIUM TAB PO SCH ×2 (08:23→20:06)
--- NOTE | 2017-04-06 11:20 | PCMIDPN ---
Assessment/Plan: #MSSA right sided empyema and psoas abscess, unclear portal of entry but certainly factor of predisposition is chronic steroid therapy for underlying lupus. interestingly, her blood cultures were negative during hospitalization. She is s/p VATs 04/05 and IR drainage of psoas 03/29 -- Suspect hematogenous spread of organism therefore would treat for minimum of 4 weeks of IV therapy. March 29 through April 26, interagency started and discussed with case management -- discuss ADIN drain with IR. CT 04/04 shows nearly drained psoas abscess, suspect can be pulled -- chest tube management per surgery, appreciate assistance # leukocytosis: suspect inflammatory reaction to VATS meds cefazolin 2gm IV q8h, #4 micro 03/29 Psoas abscess: MSSA 03/31 pleural fluid: MSSA 04/05 pleural fluid from VATS: GPCs Subjective: patient is feeling well. She has some pain associated with chest tube as expected ADIN in psoas not holding suction Objective: Vital Signs Temp Pulse Resp BP Pulse Ox 36.4 C 81 18 117/74 90 L 04/06/17 09:38 04/06/17 09:38 04/06/17 09:38 04/06/17 09:38 04/06/17 09:38 Microbiology 04/05/17 13:35 Gram Stain - Final Other - Tissue 03/29/17 Unknown Gram Stain - Final Pelvis - Aspirate Laboratory Results 04/06/17 06:05 04/06/17 06:05 04/05/17 04/06/17 04/07/17 05:59 05:59 05:59 Intake Total 600 100 Output Total 167 266 Balance -167 334 100 - Physical Exam General Appearance: alert, no apparent distress EENT: No thrush Respiratory: crackles (R base), other (CT in place with serosang drainage), No accessory muscle use Cardiac/Chest: regular rate, rhythm Extremities: No pedal edema Abdomen: non-tender, soft Skin: No rash Neuro/Psych: alert, normal mood/affect, oriented x 3 - Line/s RUE PICC Lines: No drainage, No erythema - Time Spent With Patient Time Spent with Patient: greater than 35 minutes (reviewed home IV antibiotic therapy with patient and her , reviewed pathogenesis of disease due to MSSA and that many times we do not know portal of entry) Time Spent with Patient: Greater than 35 minutes spent on this patients care, greater than 50% of time spent counseling, educating, and coordinating care regarding the above mentioned plan. ICD10 Worksheet Patient Problems: Problems Problem Status Onset Abdominal cyst Acute Facial cellulitis Acute Pleural effusion Acute
--- NOTE | 2017-04-06 12:59 | PDIAF ---
- Diagnosis Diagnosis: MSSA R empyema and psoas abscess Code Status: Full Code - Medication Management Discharge Medications: Medications to Continue on Transfer Herbals/Supplements -Info Only 1 ea PO DAILY 03/29/17 [Last Taken Unknown] Hydroxychloroquine Sulfate [Plaquenil 200 mg (*)] 400 mg PO HS 03/29/17 [Last Taken 03/28/17] Multivitamins [Multivitamin (*)] 1 each PO DAILY 03/29/17 [Last Taken 03/29/17] Mycophenolate Mofetil [Cellcept] 1,000 mg PO HS 03/29/17 [Last Taken 03/28/17] Omeprazole [Prilosec 20 mg] 20 mg PO DAILY PRN 03/29/17 [Last Taken Unknown] predniSONE 5 - 15 mg PO DAILY 03/29/17 [Last Taken 03/29/17 30mg] traMADol [Ultram 50 mg (*)] 50 mg PO Q4 PRN 03/29/17 [Last Taken Unknown] Long-Term Antibiotics: cefazolin 6gm IV continuous infusion daily Heel Scorer Antibiotic Stop Date: 04/26/17 Discharge Medications: Refer to the Discharge Home Medication list for PRN reason. PICC Care - Routine: Yes - Labs/Radiology CBC Date: 04/09/17 (weekly on Saturday) CMP Date: 04/09/17 (weekly on Saturday) - Follow Up Care Current Providers and Referrals: Miracle Verduzco PA [Physician Recruitment And Outreach Assistant] - As per Instructions
--- NOTE | 2017-04-06 14:05 | HOSPPROG ---
Hospitalist Progress Note Assessment/Plan: # R psoas abscess s/p percutaneous drainage * drain is in place but probably could be pulled * Methicillin sensitive Staph aureus * On IV Ancef # R empyema * status post VATS 04/05 # R facial erythema - resolved; d/t Lupus? # lupus - cont MMF, taper pred in process; follow closely for adrenal insufficiency with ongoing procedures # chronic immunosuppression # leukocytosis - combination of steroids and inflammation #anemia-stable * DVT prophylaxis * Lovenox * Subjective: minimal chest pain. No new complaints Objective: Vital Signs Temp Pulse Resp BP Pulse Ox 36.9 C 86 16 121/77 H 96 04/06/17 11:57 04/06/17 11:57 04/06/17 11:57 04/06/17 11:57 04/06/17 11:57 Microbiology 04/05/17 13:35 Gram Stain - Final Other - Tissue 03/29/17 Unknown Gram Stain - Final Pelvis - Aspirate Laboratory Results 04/06/17 06:05 04/06/17 06:05 04/05/17 04/06/17 04/07/17 05:59 05:59 05:59 Intake Total 600 100 Output Total 167 266 Balance -167 334 100 PT 15.5 SEC (12.0-15.0) H 03/30/17 14:15 INR 1.23 (0.83-1.16) H 03/30/17 14:15 discussed with Infectious Disease - Physical Exam Constitutional: no apparent distress, appears nourished, not in pain Eyes: anicteric sclera, EOMI Ears, Nose, Mouth, Throat: moist mucous membranes, hearing normal, ears appear normal Cardiovascular: regular rate and rhythym, no murmur, rub, or gallop Respiratory: no respiratory distress, no rales or rhonchi, reduced air movement ( right base) Gastrointestinal: normoactive bowel sounds, soft, non-tender abdomen, no palpable masses Skin: warm Neurologic: AAOx3 Psychiatric: interacting appropriately, not anxious, not encephalopathic, thought process linear ICD10 Worksheet Patient Problems: Problems Problem Status Onset Abdominal cyst Acute Facial cellulitis Acute Pleural effusion Acute
[2017-04-06] MEDS: HYDROXYCHLOROQUINE SULFATE 200 MG TAB PO SCH (20:06)
[2017-04-06] MEDS: MYCOPHENOLATE MOFETIL 250 MG CAP PO SCH (20:06)
[2017-04-07] MEDS: LR 1,000 ML IV SCH (00:04)
[2017-04-07] MEDS: HYDROCODONE/APAP 5/325 TAB PO PRN ×2 (00:05→05:42)
[2017-04-07] MEDS: HYDROmorphONE/DILAUDID 6 MG/30 ML PCA IV PRN (01:53)
[2017-04-07] MEDS: ceFAZolin 2 GM/DEXTROSE 100 ML IV SCH ×3 (05:31→21:36)
[2017-04-07 05:44] LABS: ADD DIFF? YES; ADD MORPH? NO; ADD SCAN? NO; ATYPICAL LYMPHOCYTE FLAG 0 (0-99); FRAGMENT RBC FLAG 20 (0-99); HEMATOCRIT 30.2 % (38.0-47.0); LEFT SHIFT FLG 20 (0-99); LIPEMIA HEMOLYSIS FLAG 70 (0-99); MEAN CELL HEMOGLOBIN 24.3 pg (27.9-34.1); MEAN CELL HEMOGLOBIN CONCENTR. 29.8 g/dL (32.4-36.7); MEAN CELL VOLUME 81.4 fL (81.5-99.8); MEAN PLATELET VOLUME 10.1 fL (8.7-11.7); PLATELET CLUMPS FLAG 0 (0-99); PLATELET COUNT 259 10^3/uL (150-400); RED BLOOD CELL COUNT 3.71 10^6/uL (4.18-5.33); RED CELL DISTRIBUTION WIDTH 17.8 % (11.5-15.2)
[2017-04-07 06:14] LABS: ANION GAP 8 mEq/L (8-16); CALCIUM 9.1 mg/dL (8.5-10.4); CARBON DIOXIDE 29 mEq/l (22-31); CHLORIDE 105 mEq/L (97-110); CREATININE 0.8 mg/dL (0.6-1.0); GLOMERULAR FILTRATION RATE > 60; GLUCOSE 75 mg/dL (70-100); POTASSIUM 4.1 mEq/L (3.5-5.2); SODIUM 142 mEq/L (134-144)
[2017-04-07 07:01] LABS: ELLIPTOCYTES 1+; HYPOCHROMIA 1+; MICROCYTES 1+; PLATELET ESTIMATE ADEQUATE (ADEQ)
[2017-04-07] MEDS: SENNOSIDES/DOCUSATE SODIUM TAB PO SCH ×2 (07:43→21:34)
[2017-04-07] MEDS: MULTIVITAMINS 1 EACH TAB PO SCH (07:43)
[2017-04-07] MEDS: predniSONE 20 MG TAB PO SCH (07:43)
--- NOTE | 2017-04-07 08:56 | HOSPPROG ---
Hospitalist Progress Note Assessment/Plan: #MSSA empyema and psoas abscess:-s/p VATs 04/05, abscess drainage 03/29. Blood cultures negative -4 weeks IV Ancef through April 26 -chest tube in place, appreciate Surgery assistance #Small right lower lobe PTX: stable #Leukocytosis: improved #Acute chest pain: due to tube. DC THREAD WINDER. Schedule oxycodone q6h with IV PRN. #Constipation: due to opioids. Bowel regimen #Acute hypoxic resp failure: due to empyema #Normocytic anemia: H/H stable #Lupus on chronic immunosuppression: CellCept, pred, hydroxychloroquine #Diet: regular #DVT ppx: SCDs #Disp: will DC home with once CT removed Subjective: chest pain with tube carlos with moving Objective: Vital Signs Temp Pulse Resp BP Pulse Ox 36.7 C 85 16 134/85 H 95 04/07/17 03:44 04/07/17 06:00 04/07/17 06:00 04/07/17 03:44 04/07/17 06:00 Microbiology 03/29/17 Unknown Gram Stain - Final Pelvis - Aspirate 04/05/17 13:35 Gram Stain - Final Other - Tissue Laboratory Results 04/07/17 05:30 04/07/17 05:30 04/06/17 04/07/17 04/08/17 05:59 05:59 05:59 Intake Total 600 832 Output Total 266 52 60 Balance 334 780 -60 PT 15.5 SEC (12.0-15.0) H 03/30/17 14:15 INR 1.23 (0.83-1.16) H 03/30/17 14:15 - Physical Exam Constitutional: no apparent distress Eyes: PERRL Ears, Nose, Mouth, Throat: moist mucous membranes, hearing normal Cardiovascular: regular rate and rhythym, no murmur, rub, or gallop Respiratory: no respiratory distress, no rales or rhonchi, other (right-sided chest tube, dressed, C/D/I) Gastrointestinal: normoactive bowel sounds, soft, non-tender abdomen Genitourinary: no bladder fullness Skin: warm Musculoskeletal: full muscle strength Neurologic: AAOx3, CN II-XII Intact Psychiatric: interacting appropriately, not encephalopathic ICD10 Worksheet Patient Problems: Problems Problem Status Onset Abdominal cyst Acute Facial cellulitis Acute Pleural effusion Acute
[2017-04-07] MEDS ORDERED: oxyCODONE IR 5 MG TAB PO SCH (12:00)
--- NOTE | 2017-04-07 16:06 | PCMIDPN ---
Assessment/Plan: #MSSA right sided empyema and psoas abscess, unclear portal of entry but certainly factor of predisposition is chronic steroid therapy for underlying lupus. interestingly, her blood cultures were negative during hospitalization. She is s/p VATs 04/05 and IR drainage of psoas 03/29. Doing well today -- Suspect hematogenous spread of organism therefore would treat for minimum of 4 weeks of IV therapy. March 29 through April 26, interagency started -- ADIN removed by IR yesterday -- chest tube management per surgery, appreciate assistance # leukocytosis: suspect inflammatory reaction to VATS, improved today meds cefazolin 2gm IV q8h, #5 micro 03/29 Psoas abscess: MSSA 03/31 pleural fluid: MSSA 04/05 pleural fluid from VATS: GPCs Subjective: patient feeling well and wants to get home as soon as possible Objective: Vital Signs Temp Pulse Resp BP Pulse Ox 36.8 C 96 16 113/67 97 04/07/17 14:00 04/07/17 14:00 04/07/17 11:00 04/07/17 14:00 04/07/17 14:00 Microbiology 04/05/17 13:35 Gram Stain - Final Other - Tissue 03/29/17 Unknown Gram Stain - Final Pelvis - Aspirate Laboratory Results 04/07/17 05:30 04/07/17 05:30 04/06/17 04/07/17 04/08/17 05:59 05:59 05:59 Intake Total 790 218 7711 Output Total 266 52 60 Balance 334 780 990 - Physical Exam General Appearance: alert, no apparent distress Respiratory: chest non-tender, lungs clear, other ( chest tube on right with serosanguineous fluid), No accessory muscle use Neck: supple Cardiac/Chest: regular rate, rhythm, No systolic murmur Extremities: No pedal edema Abdomen: non-tender, soft Skin: No rash Neuro/Psych: alert, normal mood/affect, oriented x 3 - Line/s RUE PICC Lines: No drainage, No erythema ICD10 Worksheet Patient Problems: Problems Problem Status Onset Abdominal cyst Acute Facial cellulitis Acute Pleural effusion Acute
[2017-04-07] MEDS: traMADol 50 MG TAB PO PRN (16:23)
[2017-04-07] MEDS: oxyCODONE IR 5 MG TAB PO PRN ×2 (17:32→21:35)
[2017-04-07] MEDS: HYDROXYCHLOROQUINE SULFATE 200 MG TAB PO SCH (21:34)
[2017-04-07] MEDS: PANTOPRAZOLE SODIUM 40 MG TAB PO PRN (21:35)
[2017-04-07] MEDS: MYCOPHENOLATE MOFETIL 250 MG CAP PO SCH (21:35)
[2017-04-08] MEDS: traMADol 50 MG TAB PO PRN (01:00)
[2017-04-08] MEDS: oxyCODONE IR 5 MG TAB PO PRN ×2 (01:37→05:35)
[2017-04-08] MEDS: ceFAZolin 2 GM/DEXTROSE 100 ML IV SCH ×3 (05:35→21:50)
[2017-04-08 05:52] LABS: HEMATOCRIT 26.8 % (38.0-47.0); MEAN CELL HEMOGLOBIN 24.1 pg (27.9-34.1); MEAN CELL HEMOGLOBIN CONCENTR. 29.9 g/dL (32.4-36.7); MEAN CELL VOLUME 80.7 fL (81.5-99.8); RED BLOOD CELL COUNT 3.32 10^6/uL (4.18-5.33); RED CELL DISTRIBUTION WIDTH 17.8 % (11.5-15.2)
--- NOTE | 2017-04-08 06:46 | PDCONSULT ---
Superintendent Communications Note: Alma is still having considerable pain related to her CT/output is diminished with 50 ml over the past 12 hours wbc 14K VATS cultures + S aureus Lungs: clear with improved aeration right CT no air leak/pleural drainage clearing Imp: s/p decortication for S aureus empyema Lupus/prednisone Rec: discussed timing of CT removal/will monitor output DC IV narcotics Harini Green MD, FACS
[2017-04-08] MEDS: predniSONE 20 MG TAB PO SCH (07:40)
[2017-04-08] MEDS: HYDROmorphONE/DILAUDID 4 MG TAB PO PRN ×4 (07:41→22:46)
[2017-04-08] MEDS: SENNOSIDES/DOCUSATE SODIUM TAB PO SCH ×2 (07:42→21:50)
[2017-04-08] MEDS: MULTIVITAMINS 1 EACH TAB PO SCH (07:42)
[2017-04-08] MEDS: IBUPROFEN 600 MG TAB PO PRN (14:45)
[2017-04-08] MEDS: PANTOPRAZOLE SODIUM 40 MG TAB PO PRN (18:16)
--- NOTE | 2017-04-08 18:22 | PCMIDPN ---
Assessment/Plan: Assessment/Plan: * MSSA right-sided empyema status post VATS with concomitant psoas abscess status post percutaneous drainage: Clinically improved post VATS. Likely hematogenous etiology based on multifocal anatomic involvement. Continue cefazolin with at least 4 week course of therapy - favor this duration post VATS given operative culture remains positive for MSSA. Plan weekly CBC and CMP as outpatient. Discharge likely once chest tube removed. 04/08/17 18:19 04/08/17 18:21 04/08/17 18:23 Subjective: Patient feels clinically improved. Pain control improved. No cough or shortness of breath. No abdominal pain. Objective: Vital Signs Temp Pulse Resp BP Pulse Ox 37.0 C 84 16 107/70 94 04/08/17 16:00 04/08/17 16:00 04/08/17 16:00 04/08/17 16:00 04/08/17 16:00 Microbiology 04/05/17 13:35 Gram Stain - Final Other - Tissue 03/29/17 Unknown Gram Stain - Final Pelvis - Aspirate Laboratory Results 04/08/17 05:45 04/07/17 05:30 04/07/17 04/08/17 04/09/17 05:59 05:59 05:59 Intake Total 832 1050 100 Output Total 52 210 20 Balance 780 840 80 Cefazolin # 6 VATS culture MSSA - Physical Exam General Appearance: alert, no apparent distress EENT: pharynx normal, No conjunctival petechiae Respiratory: other (Decreased breath sounds right base) Cardiac/Chest: regular rate, rhythm Extremities: No inflammation Skin: No embolic lesions - Line/s RUE PICC Lines: No drainage, No erythema ICD10 Worksheet Patient Problems: Problems Problem Status Onset Abdominal cyst Acute Facial cellulitis Acute Pleural effusion Acute
--- NOTE | 2017-04-08 18:43 | HOSPPROG ---
Hospitalist Progress Note Assessment/Plan: #MSSA empyema and psoas abscess:-s/p VATs 04/05, abscess drainage 03/29. Blood cultures negative -4 weeks IV Ancef through April 26 -chest tube in place, appreciate Surgery assistance #Small right lower lobe PTX: stable #Leukocytosis: improved #Acute chest pain: controlled on orals. #Constipation: due to opioids. Encouraged her to try Mom or Lactulose #Acute hypoxic resp failure: due to empyema #Normocytic anemia: H/H stable #Lupus on chronic immunosuppression: CellCept, pred, hydroxychloroquine #Diet: regular #DVT ppx: SCDs #Disp: will DC home with once CT removed Subjective: no SOB. Pain controlled Objective: Vital Signs Temp Pulse Resp BP Pulse Ox 37.0 C 84 16 107/70 94 04/08/17 16:00 04/08/17 16:00 04/08/17 16:00 04/08/17 16:00 04/08/17 16:00 Microbiology 04/05/17 13:35 Gram Stain - Final Other - Tissue 03/29/17 Unknown Gram Stain - Final Pelvis - Aspirate Laboratory Results 04/08/17 05:45 04/07/17 05:30 04/07/17 04/08/17 04/09/17 05:59 05:59 05:59 Intake Total 832 1050 100 Output Total 52 210 20 Balance 780 840 80 PT 15.5 SEC (12.0-15.0) H 03/30/17 14:15 INR 1.23 (0.83-1.16) H 03/30/17 14:15 - Physical Exam Constitutional: no apparent distress Eyes: PERRL Ears, Nose, Mouth, Throat: moist mucous membranes Cardiovascular: regular rate and rhythym, no murmur, rub, or gallop Respiratory: other (CT in place. Decreased breath sound right base) Gastrointestinal: normoactive bowel sounds, soft, non-tender abdomen Genitourinary: no bladder fullness Skin: warm Musculoskeletal: full muscle strength Neurologic: AAOx3, CN II-XII Intact Psychiatric: interacting appropriately ICD10 Worksheet Patient Problems: Problems Problem Status Onset Abdominal cyst Acute Facial cellulitis Acute Pleural effusion Acute
[2017-04-08] MEDS: MYCOPHENOLATE MOFETIL 250 MG CAP PO SCH (21:50)
[2017-04-08] MEDS: HYDROXYCHLOROQUINE SULFATE 200 MG TAB PO SCH (21:50)
[2017-04-09] MEDS: ceFAZolin 2 GM/DEXTROSE 100 ML IV SCH ×3 (04:59→21:30)
[2017-04-09] MEDS: HYDROmorphONE/DILAUDID 4 MG TAB PO PRN ×4 (05:01→20:03)
[2017-04-09 05:25] LABS: HEMATOCRIT 25.8 % (38.0-47.0); HEMOGLOBIN 7.8 g/dL (12.6-16.3); MEAN CELL HEMOGLOBIN 24.6 pg (27.9-34.1); MEAN CELL HEMOGLOBIN CONCENTR. 30.2 g/dL (32.4-36.7); MEAN CELL VOLUME 81.4 fL (81.5-99.8); RED BLOOD CELL COUNT 3.17 10^6/uL (4.18-5.33); RED CELL DISTRIBUTION WIDTH 17.9 % (11.5-15.2)
--- NOTE | 2017-04-09 06:22 | PDCONSULT ---
Gauge And Instrument Inspector Note: Alma has improved pain control and is resting comfortably/she had a BM yesterday CT output is down and clearing Lungs: clear with diminished BS on the right no CT air leak wbc 13 Imp: clinically resolving right empyema/MSSA s/p VATS Rec: check CXR, DC CT in AM ? home tomorrow afternoon with IV Abx S MD Peter, FACS
[2017-04-09] MEDS: IBUPROFEN 600 MG TAB PO PRN ×2 (06:41→16:41)
--- NOTE | 2017-04-09 08:18 | HOSPPROG ---
Hospitalist Progress Note Assessment/Plan: #MSSA empyema and psoas abscess:-s/p VATs 04/05, abscess drainage 03/29. Blood cultures negative -4 weeks IV Ancef through April 26 -DC CT in morning hopefully #Small right lower lobe PTX: stable #Leukocytosis: improved #Acute chest pain: controlled on orals. #Constipation: due to opioids. Had BM today #Acute hypoxic resp failure: due to empyema #Normocytic anemia: mild drop H/H. Monitor #Lupus on chronic immunosuppression: CellCept, pred, hydroxychloroquine #Diet: regular #DVT ppx: SCDs #Disp: will DC home with once CT removed, hopefully tomorrow Subjective: pain controlled. Had BM Objective: Vital Signs Temp Pulse Resp BP Pulse Ox 37.0 C 95 14 117/77 96 04/09/17 07:23 04/09/17 07:23 04/09/17 07:23 04/09/17 07:23 04/09/17 07:23 Microbiology 04/05/17 13:35 Gram Stain - Final Other - Tissue 03/29/17 Unknown Gram Stain - Final Pelvis - Aspirate Laboratory Results 04/09/17 05:09 04/07/17 05:30 04/08/17 04/09/17 04/10/17 05:59 05:59 05:59 Intake Total 1050 400 Output Total 210 50 Balance 840 350 PT 15.5 SEC (12.0-15.0) H 03/30/17 14:15 INR 1.23 (0.83-1.16) H 03/30/17 14:15 - Physical Exam Constitutional: no apparent distress Eyes: PERRL Ears, Nose, Mouth, Throat: moist mucous membranes Cardiovascular: regular rate and rhythym, no murmur, rub, or gallop Respiratory: no respiratory distress, reduced air movement (right base. chest tube in place with min TTP) Gastrointestinal: normoactive bowel sounds Genitourinary: no bladder fullness Skin: warm Musculoskeletal: full muscle strength Neurologic: AAOx3, CN II-XII Intact Psychiatric: interacting appropriately ICD10 Worksheet Patient Problems: Problems Problem Status Onset Abdominal cyst Acute Facial cellulitis Acute Pleural effusion Acute
[2017-04-09] MEDS: predniSONE 20 MG TAB PO SCH (08:38)
[2017-04-09] MEDS: SENNOSIDES/DOCUSATE SODIUM TAB PO SCH ×2 (08:39→20:04)
[2017-04-09] MEDS: MULTIVITAMINS 1 EACH TAB PO SCH (08:39)
--- NOTE | 2017-04-09 14:17 | PCMIDPN ---
Assessment/Plan: Assessment/Plan: 1. Right Psoas abscess and Empyema secondary to MSSA - Cx reports corrected and i also spoke to micro to confirm. no longer ID'd as MRSA and is indeed MSSA - ON Ancef - blood cx so far ngtd -Recommend checking TTE for completion sake given two sites of involvement -s/p VATS on 04/05/17 - will plan for 4 weeks therapy from VATs procedure. -Ct tube to come out possible tomorrow. ok to dc from ID perspective after that. - f/u in the OP on 04/17/17 at 10:30am. -[facility]agency updated.ENd date :05/03/17 Meds Ancef 2g q8- Subjective: Afebrile. feeling better. some discomfort with respect to Chest tube. breathing is better. still with some pain on deep breathing. denies diarrhea. Objective: Vital Signs Temp Pulse Resp BP Pulse Ox 36.6 C 84 14 106/64 95 04/09/17 11:16 04/09/17 11:16 04/09/17 11:16 04/09/17 11:16 04/09/17 11:16 Microbiology 04/05/17 13:35 Gram Stain - Final Other - Tissue 03/29/17 Unknown Gram Stain - Final Pelvis - Aspirate Laboratory Results 04/09/17 05:09 04/07/17 05:30 04/08/17 04/09/17 04/10/17 05:59 05:59 05:59 Intake Total 1050 400 Output Total 210 50 Balance 840 350 - Physical Exam General Appearance: alert, no apparent distress Respiratory: coarse breath sounds Cardiac/Chest: regular rate, rhythm, other (chest tube) Extremities: No swelling Abdomen: normal bowel sounds, non-tender, soft, other (adrianna drain out), No distended Skin: No erythema ICD10 Worksheet Patient Problems: Problems Problem Status Onset Abdominal cyst Acute Facial cellulitis Acute Pleural effusion Acute
--- NOTE | 2017-04-09 14:22 | PDIAF ---
- Diagnosis Diagnosis: MSSA R empyema and psoas abscess Code Status: Full Code - Medication Management Discharge Medications: Medications to Continue on Transfer Herbals/Supplements -Info Only 1 ea PO DAILY 03/29/17 [Last Taken Unknown] Hydroxychloroquine Sulfate [Plaquenil 200 mg (*)] 400 mg PO HS 03/29/17 [Last Taken 03/28/17] Multivitamins [Multivitamin (*)] 1 each PO DAILY 03/29/17 [Last Taken 03/29/17] Mycophenolate Mofetil [Cellcept] 1,000 mg PO HS 03/29/17 [Last Taken 03/28/17] Omeprazole [Prilosec 20 mg] 20 mg PO DAILY PRN 03/29/17 [Last Taken Unknown] traMADol [Ultram 50 mg (*)] 50 mg PO Q4 PRN 03/29/17 [Last Taken Unknown] HYDROmorphone HCL [Dilaudid 4 mg (*)] 4 mg PO Q6HRS PRN #30 tab 04/09/17 [Last Taken Unknown] Ibuprofen [Motrin (*)] 600 mg PO Q8H PRN #0 tab 04/09/17 [Last Taken Unknown] Sennosides/Docusate Sodium [Senokot-S] 1 - 2 tab PO BID tab 04/09/17 [Last Taken Unknown] predniSONE 10 mg PO DAILY tablet 04/09/17 [Last Taken Unknown] Penitentiary Antibiotics: cefazolin 6gm IV continuous infusion daily Elevator Constructor Supervisor Antibiotic Stop Date: 05/03/17 Discharge Medications: Refer to the Discharge Home Medication list for PRN reason. PICC Care - Routine: Yes - Orders Diet Recommendation: no restrictions on diet Diet Texture: Regular Texture Diet - Labs/Radiology CBC Date: 04/15/17 (q mondays) CMP Date: 04/15/17 (q mondays) CRP Date: 04/15/17 (q mondays) Call or Fax Lab and Imaging Results to: fax to Dr. Walker- [phone] - Follow Up Care Current Providers and Referrals: Miracle Verduzco PA [Physician Exercise Science Instructor] - As per Instructions Rahul Walker MD [Medical Doctor] - 04/17/17 10:30 am (f/u wiht Dr. Walker ( Infectious Diseases) on 04/17/17 at 10:30am. CHeck in time is at 10:10am. Thanks. )
--- NOTE | 2017-04-09 17:44 | ECHO ---
[id number] + + [address] : : [place] [address] : : [phone] + + Adult Echocardiographic Report + + :Name: PETER JEFF DStudy Date: 04/09/2017 03:13 PM BP: 106/64 mmHg : : Hospital Admission Number: [id number] Loc ation: 392: :: 1970 Gender: Female Height: 67 in : :Age: 46 yrs Race: WH Weight: 196 lb : :Reason For Study: evaluate for valvular vegetations : : BSA: 2.0 me ters2 : :History: MSSA empyema and psoas abscess : + + MMode/2D Measurements \T\ Calculations IVSd: 0.97 cm RVDd: 3.6 cm FS: 41.8 % Ao root diam: LVPWd: 0.98 cm LVIDd: 4.1 cm EDV(Teich): 3.0 cm LVIDs: 2.4 cm 75.5 ml ESV(Teich): 20.3 ml EF(Teich): 73.2 % LVLd ap4: 8.1 cm SV(MOD-sp4): EDV(MOD-sp4): 83.0 ml 120.0 ml LVLs ap4: 6.6 cm ESV(MOD-sp4): 37.0 ml EF(MOD-sp4): 69.2 % Normal Measurement Values: + + :LVIDd (3.5-5.7cm) IVSd (0.6-1.1cm) LVPWd (0.6-1.1cm) Aortic Root (2.0-3.7cm)Left Atrium (1.5-4.0cm): :LV Vol(d) (76-115ml) LV Vol(s) (29-48ml) Ejec Fraction (50-65%)PV Tutu (0.6- 1.2m/s) TV Tutu (0.4-1.0m/s) : :MV E Tutu (0.8-1.0m/s)MV A Tutu (0.3-1.0m/s)LVOT Tutu (0.7-1.2m/s) Asc Ao Tutu ( 0.9-1.8m/s) : + + Doppler Measurements \T\ Calculations MV E max tutu: Ao V2 max: LV V1 max: PA V2 max: 84.9 cm/sec 159.6 cm/sec 127.3 cm/sec 112.7 cm/sec MV A max tutu: Ao max PG: LV V1 max PG: PA max P.2 cm/sec 10.2 mmHg 6.5 mmHg 5.1 mmHg MV E/A: 1.4 MV dec time: 0.14 sec TR max tutu: 255.2 cm/sec TR max P.0 mmHg RAP systole: 5.0 mmHg RVSP(TR): 31.0 mmHg Left Ventricle The left ventricle is normal in size and function. There is normal left ventricular wall thickness. Ejection Fraction = 65%. There are regional wall motion abnormalities as specified. Right Ventricle The right ventricle is normal in size and function. Atria The left atrial size is normal. Right atrial size is normal. Mitral Valve The mitral valve is normal in structure and function. There is no vegetation seen on the mitral valve. There is no mitral valve stenosis. There is trace to mild mitral regurgitation. Tricuspid Valve The tricuspid valve is normal in structure and function. There is no tricuspid valve vegetation. There is no tricuspid stenosis. There is mild tricuspid regurgitation. Right ventricular systolic pressure is 31mmHg. RVSP is upper limits of normal. Aortic Valve The aortic valve is trileaflet. There is no aortic valvular vegetation. There is no aortic stenosis. There is no aortic insufficiency. Pulmonic Valve The pulmonic valve is not well visualized. There is no pulmonic valvular regurgitation. Great Vessels The aortic root is normal size. Pericardium/Pleural There is no pericardial effusion. Conclusion A two-dimensional transthoracic echocardiogram with M-mode and Doppler was performed. There is no evidence of a mass or vegetation. This does not rule out endocarditis. The left ventricle is normal in size and function. Ejection Fraction = 65%. There is trace to mild mitral regurgitation. There is mild tricuspid regurgitation. Right ventricular systolic pressure is 31mmHg. RVSP is upper limits of normal. Final Reading Physician: Dr Dasia Landers electronically signed on 04/09/2017 05:43 PM Ordering Physician: Rahul Walker Performed By: Isaura Noonan
[2017-04-09] MEDS: HYDROXYCHLOROQUINE SULFATE 200 MG TAB PO SCH (20:03)
[2017-04-09] MEDS: MYCOPHENOLATE MOFETIL 250 MG CAP PO SCH (20:03)
[2017-04-10] MEDS: HYDROmorphONE/DILAUDID 4 MG TAB PO PRN ×3 (01:42→13:51)
[2017-04-10] MEDS: ceFAZolin 2 GM/DEXTROSE 100 ML IV SCH ×2 (05:02→13:08)
[2017-04-10] MEDS: IBUPROFEN 600 MG TAB PO PRN (05:03)
[2017-04-10 05:39] LABS: HEMATOCRIT 26.9 % (38.0-47.0); HEMOGLOBIN 7.9 g/dL (12.6-16.3); MEAN CELL HEMOGLOBIN 23.9 pg (27.9-34.1); MEAN CELL HEMOGLOBIN CONCENTR. 29.4 g/dL (32.4-36.7); MEAN CELL VOLUME 81.5 fL (81.5-99.8); RED BLOOD CELL COUNT 3.3 10^6/uL (4.18-5.33)
--- NOTE | 2017-04-10 07:39 | PDCONSULT ---
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 Chest tube removed using sterile technique/occlusive dressing applied-lungs clear and expanded will check CXR post tube removal FU my office one week after discharge for post op check S MD Peter, FACS
[2017-04-10 07:48] VITALS: TEMP 98.3
[2017-04-10] MEDS: MULTIVITAMINS 1 EACH TAB PO SCH (08:48)
[2017-04-10] MEDS: predniSONE 20 MG TAB PO SCH (08:49)
[2017-04-10] MEDS: SENNOSIDES/DOCUSATE SODIUM TAB PO SCH (08:49)
--- NOTE | 2017-04-10 08:55 | HOSPPROG ---
Hospitalist Progress Note Assessment/Plan: #MSSA empyema and psoas abscess:-s/p VATs 04/05, abscess drainage 03/29. Blood cultures negative -4 weeks IV Ancef through 05/03. TTE with no endocarditis -chest tube out; CXR pending #Small right lower lobe PTX: stable #Leukocytosis: improved #Acute chest pain: controlled on orals. #Constipation: due to opioids. Had BM today #Acute hypoxic resp failure: due to empyema #Normocytic anemia: mild drop H/H. Monitor #Lupus on chronic immunosuppression: CellCept, pred, hydroxychloroquine #Diet: regular #DVT ppx: SCDs #Disp: DC today Subjective: doing well. Chest tube out Objective: Vital Signs Temp Pulse Resp BP Pulse Ox 36.8 C 93 19 111/66 91 L 04/10/17 07:47 04/10/17 07:47 04/10/17 07:47 04/10/17 07:47 04/10/17 07:47 Microbiology 04/05/17 13:35 Gram Stain - Final Other - Tissue 03/29/17 Unknown Gram Stain - Final Pelvis - Aspirate Laboratory Results 04/10/17 05:00 04/07/17 05:30 04/09/17 04/10/17 04/11/17 05:59 05:59 05:59 Intake Total 400 600 Output Total 50 Balance 350 600 PT 15.5 SEC (12.0-15.0) H 03/30/17 14:15 INR 1.23 (0.83-1.16) H 03/30/17 14:15 - Physical Exam Constitutional: no apparent distress Eyes: PERRL Ears, Nose, Mouth, Throat: moist mucous membranes Cardiovascular: regular rate and rhythym Respiratory: no respiratory distress, no rales or rhonchi Gastrointestinal: normoactive bowel sounds, soft, non-tender abdomen Genitourinary: no bladder fullness Skin: warm Musculoskeletal: full muscle strength Neurologic: AAOx3 Psychiatric: interacting appropriately ICD10 Worksheet Patient Problems: Problems Problem Status Onset Abdominal cyst Acute Facial cellulitis Acute Pleural effusion Acute
--- NOTE | 2017-04-10 09:19 | PDIAF ---
- Diagnosis Diagnosis: MSSA R empyema and psoas abscess Code Status: Full Code - Medication Management Discharge Medications: Medications to Continue on Transfer Herbals/Supplements -Info Only 1 ea PO DAILY 03/29/17 [Last Taken Unknown] Hydroxychloroquine Sulfate [Plaquenil 200 mg (*)] 400 mg PO HS 03/29/17 [Last Taken 03/28/17] Multivitamins [Multivitamin (*)] 1 each PO DAILY 03/29/17 [Last Taken 03/29/17] Mycophenolate Mofetil [Cellcept] 1,000 mg PO HS 03/29/17 [Last Taken 03/28/17] Omeprazole [Prilosec 20 mg] 20 mg PO DAILY PRN 03/29/17 [Last Taken Unknown] traMADol [Ultram 50 mg (*)] 50 mg PO Q4 PRN 03/29/17 [Last Taken Unknown] HYDROmorphone HCL [Dilaudid 4 mg (*)] 4 mg PO Q6HRS PRN #30 tab 04/09/17 [Last Taken Unknown] Ibuprofen [Motrin (*)] 600 mg PO Q8H PRN #0 tab 04/09/17 [Last Taken Unknown] Sennosides/Docusate Sodium [Senokot-S] 1 - 2 tab PO BID tab 04/09/17 [Last Taken Unknown] predniSONE 10 mg PO DAILY tablet 04/09/17 [Last Taken Unknown] Intermediate Antibiotics: cefazolin 6gm IV continuous infusion daily Child Development Specialist Antibiotic Stop Date: 05/03/17 Discharge Medications: Refer to the Discharge Home Medication list for PRN reason. PICC Care - Routine: Yes - Orders Services needed: Home Care, Registered Nurse Home Care Face to Face: I certify that this patient was under my care and that I had the required [id number] encounter meeting the encounter requirements on the discharge day. My findings support the fact that the patient is homebound as defined in CMS Chapter 7 Medicare Benefits Manual 30.1.1, The condition of the patient is such that there exists a normal inability to leave home and consequently, leaving home would require a considerable and taxing effort. Diet Recommendation: no restrictions on diet Diet Texture: Regular Texture Diet - Labs/Radiology CBC Date: 04/15/17 (q mondays) CMP Date: 04/15/17 (q mondays) CRP Date: 04/15/17 (q mondays) Call or Fax Lab and Imaging Results to: fax to Dr. Walker- [phone] - Follow Up Care Current Providers and Referrals: Ria Green MD [Medical Doctor] - Rahul Walker MD [Medical Doctor] - 04/17/17 10:30 am (f/u wiht Dr. Walker ( Infectious Diseases) on 04/17/17 at 10:30am. CHeck in time is at 10:10am. Thanks. ) Miracle Verduzco PA [Physician Printing Bindery Assistant] - As per Instructions
[2017-04-10 11:51] VITALS: BP 108/71; PULSE 91; RESP 15; O2SAT 83
--- NOTE | 2017-04-10 18:24 | GDS ---
[f rep st] DISCHARGE SUMMARY DISCHARGE DIAGNOSES: 1. Methicillin-sensitive staph aureus empyema on psoas abscess status post VATS and drainage. 2. Small right lower lobe pneumothorax. 3. Leukocytosis. 4. Acute chest pain. 5. Constipation. 6. Acute hypoxic respiratory failure. 7. Normocytic anemia. 8. Lupus on chronic immunosuppression. CONSULTATIONS: 1. Surgery. 2. Infectious Disease. PROCEDURES: 1. 04/05/2017: Right thoracoscopic decortication and empyema drainage. 2. 03/31/2017: Chest tube placement. HPI: The patient is a 46-year-old female with history of lupus on intermittent prednisone therapy w ho presented with sudden onset of right-sided chest and back pain, and associated shortness of breat h. This began day of admission, on 03/29/2017. She was in her normal state of health prior to this . Reports pain being pleuritic in nature and sharp. In response to these pains, she took 30 mg pre dnisone from her normal 5 thinking it may be related to her lupus. In the emergency room, imaging d emonstrated an acute psoas abscess and a right-sided pleural effusion. HOSPITAL COURSE BY PROBLEM: 1. Methicillin-sensitive staph aureus empyema and psoas abscess: The patient underwent VATS and de cortication as well as well as psoas abscess drainage. She has been on IV antibiotics. Echocardiog michael negative for endocarditis. She will continue Ancef through 05/03/2017. She is to follow up jeremias Green in 1 week. 2. Acute chest pain. This is secondary to infection and chest tube placement. We will provide opi oids at discharge. 3. Acute hypoxic respiratory failure secondary to empyema. This has resolved. 4. Lupus on chronic immunosuppression with CellCept, prednisone, and hydrochloroquine. 5. Leukocytosis. Combination of steroids, infection, and stress inflammation. It is improved to 1 3 today. She has been afebrile. 6. Normocytic anemia. This is stable. 7. Constipation, improved with bowel regimen. DISPOSITION: Patient is stable for discharge. FOLLOWUP: 1. Dr. Green in 1 week. 2. Infectious Disease. /[id number]/MODL
== END 2017-04-10 15:50 | disposition home health service (06) | DRG 163 ==
LOC: F3E 16:51 → OBSVTOIN 17:12 → F3E 04-06 10:05
PROVIDERS: ADMIT Hospitalist; ATTEND Hospitalist
PROC: 0J9C0ZX Drainage of Pelvic Region Subcutaneous Tissue and Fascia, Open Approach, Diagnostic (ICD-10-PCS; 2017-03-29)
PROC: 0W9930Z Drainage of Right Pleural Cavity with Drainage Device, Percutaneous Approach (ICD-10-PCS; 2017-03-31)
PROC: 02HV33Z Insertion of Infusion Device into Superior Vena Cava, Percutaneous Approach (ICD-10-PCS; 2017-04-01)
PROC: 0BDN4ZZ Extraction of Right Pleura, Percutaneous Endoscopic Approach (ICD-10-PCS; principal; 2017-04-05 12:00)
DX: J86.9 Pyothorax without fistula (principal); K68.12 Psoas muscle abscess; J96.01 Acute respiratory failure with hypoxia; J90 Pleural effusion, not elsewhere classified; B95.61 Methicillin susceptible Staphylococcus aureus infection as the cause of diseases classified elsewhere; K59.00 Constipation, unspecified; D64.9 Anemia, unspecified; M32.9 Systemic lupus erythematosus, unspecified; Z87.891 Personal history of nicotine dependence
CPT/HCPCS: 96365; C1751; J0690; J1170; J2250; J2543; J2704; J2997; J3010; J3370; J3475; Q9967

== ENCOUNTER → 2017-06-19 | Outpatient (CLI) | payer OTHER | LOC: BMCIMAGING 15:45 | PROVIDERS: ATTEND Internal Medicine Rheumatology | DX: R42 Dizziness and giddiness (principal); M32.9 Systemic lupus erythematosus, unspecified ==

== ENCOUNTER 2017-06-20 13:56 | Inpatient (IN) | payer OTHER ==
[~2017-06-20 13:56] MED LIST changes: -ENOXAPARIN 40 MG/0.4 ML SYR SC SCH; +IOPAMIDOL (ISOVUE 370) 100 ML BTL IV ONE
[2017-06-20 14:35] LABS: % IMMATURE GRANULYOCYTES 0.6 % (0.0-1.1); ABSOLUTE IMMATURE GRANULOCYTES 0.09 10^3/uL (0.00-0.10); ADD DIFF? NO; ADD MORPH? NO; ADD SCAN? NO; ATYPICAL LYMPHOCYTE FLAG 0 (0-99); FRAGMENT RBC FLAG 20 (0-99); HEMATOCRIT 34.5 % (38.0-47.0); HEMOGLOBIN 10.6 g/dL (12.6-16.3); LEFT SHIFT FLG 0 (0-99); LIPEMIA HEMOLYSIS FLAG 80 (0-99); MEAN CELL HEMOGLOBIN 25.4 pg (27.9-34.1); MEAN CELL HEMOGLOBIN CONCENTR. 30.7 g/dL (32.4-36.7); MEAN CELL VOLUME 82.5 fL (81.5-99.8); MEAN PLATELET VOLUME 10.8 fL (8.7-11.7); PLATELET CLUMPS FLAG 10 (0-99); PLATELET COUNT 383 10^3/uL (150-400); RED BLOOD CELL COUNT 4.18 10^6/uL (4.18-5.33); RED CELL DISTRIBUTION WIDTH 16.6 % (11.5-15.2)
--- NOTE | 2017-06-20 14:35 | EDPHY ---
H & P Stated Complaint: PERICARDIAL EFFUSION Time Seen by Provider: 06/20/17 14:18 HPI/ROS: CHIEF COMPLAINT: Chest tightness HISTORY OF PRESENT ILLNESS: Patient is a 46-year-old female who presents to the emergency department from imaging with a diagnosed pericardial effusion. She has a history of lupus and is on chronic immunosuppression. Saturday and Saturday she began feeling some chest tightness and lightheadedness. She presented to her primary doctor yesterday who ordered an outpatient CT scan to rule out pulmonary embolism. During the CT scan she was found to have a large pericardial effusion. She reports that in March of this year she had a pleural effusion that was corrected with VATS procedure by Dr. Green. She had an iliopsoas abscess at the time that they thought to be complicating source. She has not had a fever. She has not had any pain. No rash. REVIEW OF SYSTEMS: Constitutional: denies: chills, fever, recent illness, recent injury EENTM: denies: blurred vision, double vision, nose congestion Respiratory: See HPI Cardiac: See HPI Gastrointestinal/Abdominal: denies: abdominal pain, diarrhea, nausea, vomiting, blood streaked stools Genitourinary: denies: dysuria, frequency, hematuria, pain Musculoskeletal: denies: joint pain, muscle pain Skin: denies: lesions, rash, jaundice, bruising Neurological: denies: headache, numbness, paresthesia, tingling, dizziness, weakness Hematologic/Lymphatic: denies: blood clots, easy bleeding, easy bruising Immunologic/allergic: denies: HIV/AIDS, transplant EXAM: GENERAL: Well-appearing, well-nourished and in no acute distress. HEAD: Atraumatic, normocephalic. EYES: Pupils equal round and reactive to light, extraocular movements intact, sclera anicteric, conjunctiva are normal. ENT: TMs normal, nares patent, oropharynx clear without exudates. Moist mucous membranes. NECK: Normal range of motion, supple without lymphadenopathy or JVD. LUNGS: Breath sounds clear to auscultation bilaterally and equal. No wheezes rales or rhonchi. HEART: Regular rate and rhythm without murmurs, rubs or gallops. ABDOMEN: Soft, nontender, normoactive bowel sounds. No guarding, no rebound. No masses appreciated. BACK: No CVA tenderness, no spinal tenderness, step-offs or deformities EXTREMITIES: Normal range of motion, no pitting or edema. No clubbing or cyanosis. NEUROLOGICAL: Cranial nerves II through XII grossly intact. Normal speech, normal gait. 5/5 strength, normal movement in all extremities, normal sensation PSYCH: Normal mood, normal affect. SKIN: Warm, dry, normal turgor, no visible rashes or lesions. Source: Patient Exam Limitations: No limitations - Personal History LMP (Females 10-55): 8-14 Days Ago Current Tetanus Diphtheria and Acellular Pertussis (TDAP): Unsure - Medical/Surgical History Hx Asthma: No Hx Chronic Respiratory Disease: No Hx Diabetes: No Hx Cardiac Disease: No Hx Renal Disease: No Hx Cirrhosis: No Hx Alcoholism: No Hx HIV/AIDS: No Hx Splenectomy or Spleen Trauma: No Other PMH: Lupus - Family History Significant Family History: No pertinent family hx - Social History Smoking Status: Former smoker Alcohol Use: Sober Drug Use: None Constitutional: Initial Vital Signs Temperature (C) 36.8 C 06/20/17 14:02 Heart Rate 95 06/20/17 14:02 Respiratory Rate 16 06/20/17 14:02 Blood Pressure 155/104 H 06/20/17 14:02 O2 Sat (%) 92 06/20/17 14:02 O2 Delivery Mode Room Air Allergies/Adverse Reactions: No Known Allergies Allergy (Unverified 03/29/17 11:47) Home Medications: Medication Instructions Recorded Hydroxychloroquine Sulfate 400 mg PO HS 03/29/17 [Plaquenil 200 mg (*)] Multivitamins [Multivitamin (*)] 1 each PO DAILY 03/29/17 Mycophenolate Mofetil [Cellcept] 1,000 mg PO HS 03/29/17 Omeprazole [Prilosec 20 mg] 20 mg PO HS PRN 03/29/17 traMADol [Ultram 50 mg (*)] 50 mg PO Q4 PRN 03/29/17 Ibuprofen [Motrin (*)] 600 mg PO Q8H PRN #0 tab 04/09/17 Sennosides/Docusate Sodium 1 - 2 tab PO BID tab 04/09/17 [Senokot-S] predniSONE 5 mg PO DAILY 06/20/17 Medical Decision Making ED Course/Re-evaluation: 3:00 p.m. I discussed the case with Dr. Serge Randolph who will admit to telemetry. 3:10 p.m. I discussed the case with Dr. Ariza who will consult. Dr. Bernal is here evaluating the patient. Differential Diagnosis: Partial list of the Differential diagnosis considered include but were not limited to; pericardial effusion, PE and although unlikely based on the history and physical exam, I also considered acute coronary disease, pneumonia, pneumothorax. - Data Points Laboratory Results: Laboratory Results 06/20/17 14:17 06/20/17 14:17 Medications Given: Hydroxychloroquine Sulfate (Plaquenil) 400 mg PO HS SHIRA PRN Reason: Protocol Stop: 07/20/17 20:59 Last Admin: 06/20/17 20:25 Dose: 400 mg Sodium Chloride (Ns) 1,000 mls @ 125 mls/hr IV CONT SHIRA Stop: 12/17/17 16:44 Last Admin: 06/21/17 16:55 Dose: 1,000 mls Methylprednisolone Sodium Succinate (Solu-Medrol) 60 mg IVP Q6HRS SHIRA Stop: 12/17/17 16:44 Last Admin: 06/21/17 17:07 Dose: 60 mg Multivitamins (Tab-A-Wil) 1 each PO DAILY SHIRA Stop: 12/18/17 08:59 Last Admin: 06/21/17 09:51 Dose: Not Given Mycophenolate Mofetil (Cellcept) 1,000 mg PO HS SHIRA Stop: 12/17/17 20:59 Last Admin: 06/20/17 20:26 Dose: Not Given Pantoprazole Sodium (Protonix) 40 mg PO HS PRN PRN Reason: Acid Reflux Stop: 12/17/17 16:57 Last Admin: 06/20/17 20:25 Dose: 40 mg Polyethylene Glycol (Miralax) 17 gm PO DAILY SHIRA Stop: 12/18/17 08:59 Last Admin: 06/21/17 09:50 Dose: Not Given Senna/Docusate Sodium (Senokot-S) 1 - 2 tab PO BID SHIRA Stop: 12/17/17 20:59 Last Admin: 06/21/17 09:50 Dose: Not Given Discontinued Medications Aspirin Buffered (Aspirin Ec) 325 mg PO ONCALL ONE Stop: 06/20/17 17:51 Last Admin: 06/20/17 18:16 Dose: Not Given Aspirin Buffered (Aspirin Ec) 325 mg PO ONCALL ONE Stop: 06/21/17 08:01 Last Admin: 06/21/17 14:24 Dose: Not Given Diazepam (Valium) 5 mg PO ONCALL ONE Stop: 06/20/17 17:51 Last Admin: 06/20/17 18:16 Dose: Not Given Diazepam (Valium) 5 mg PO ONCALL ONE Stop: 06/21/17 08:01 Last Admin: 06/21/17 14:25 Dose: Not Given Diphenhydramine HCl (Benadryl) 25 mg PO ONCALL ONE Stop: 06/20/17 17:51 Last Admin: 06/20/17 18:15 Dose: Not Given Diphenhydramine HCl (Benadryl) 25 mg PO ONCALL ONE Stop: 06/21/17 08:01 Last Admin: 06/21/17 14:25 Dose: Not Given Famotidine (Pepcid) 20 mg PO ONCALL ONE Stop: 06/20/17 17:51 Last Admin: 06/20/17 18:16 Dose: Not Given Famotidine (Pepcid) 20 mg PO ONCALL ONE Stop: 06/21/17 08:01 Last Admin: 06/21/17 14:25 Dose: Not Given Potassium Chloride (Klor-Con) 40 meq PO EDNOW ONE Stop: 06/20/17 14:52 Last Admin: 06/20/17 15:50 Dose: 40 meq Departure - Departure Disposition: [facility] Inpatient Acute Clinical Impression: Pericardial effusion Condition: Fair
[2017-06-20 14:42] LABS: ANION GAP 11 mEq/L (8-16); CALCIUM 9.5 mg/dL (8.5-10.4); CARBON DIOXIDE 24 mEq/l (22-31); CHLORIDE 103 mEq/L (97-110); CREATININE 0.5 mg/dL (0.6-1.0); GLOMERULAR FILTRATION RATE > 60; GLUCOSE 73 mg/dL (70-100); SODIUM 138 mEq/L (134-144)
[2017-06-20] MEDS ORDERED: POTASSIUM CL 20 MEQ TAB PO ONE (14:51)
[2017-06-20 14:54] LABS: TROPONIN I < 0.012 ng/mL (0.000-0.034)
--- NOTE | 2017-06-20 16:34 | CPEKG ---
Heart Rate: 91 RR Interval: 659 P-R Interval: 140 QRSD Interval: 92 QT Interval: 360 QTC Interval: 443 P Somerset: 46 QRS Somerset: 47 T Wave Somerset: -63 EKG Severity - BORDERLINE ECG - EKG Impression: SINUS RHYTHM EKG Impression: BORDERLINE T ABNORMALITIES, DIFFUSE LEADS Electronically Signed By: Po Delcid 21-Jun-2017 11:09:15
[2017-06-20] MEDS ORDERED: ONDANSETRON DISINTEGRATING 4 MG TAB PO PRN (16:35)
[2017-06-20] MEDS ORDERED: ONDANSETRON 4 MG/2 ML VIAL IVP PRN (16:35)
[2017-06-20] MEDS ORDERED: ACETAMINOPHEN 325 MG TAB PO PRN (16:35)
[2017-06-20] MEDS ORDERED: NON-FORMULARY NEW DRUG (Omeprazole [Prilosec 20 Mg] 20 MG) PO PRN (16:39)
[2017-06-20] MEDS ORDERED: traMADol 50 MG TAB PO PRN (16:39)
[2017-06-20] MEDS ORDERED: IBUPROFEN 600 MG TAB PO PRN (16:39)
[2017-06-20] MEDS ORDERED: PANTOPRAZOLE SODIUM 40 MG TAB PO PRN (16:58)
[2017-06-20] MEDS: NS 1,000 ML IV SCH ×2 (17:06→23:53)
[2017-06-20] MEDS: methylPREDNISolone SOD SUCC 125 MG/2 ML VIAL IVP SCH ×3 (17:06→23:54)
[2017-06-20] MEDS ORDERED: ASPIRIN EC 325 MG TAB PO ONE (17:50)
[2017-06-20] MEDS ORDERED: diphenhydrAMINE 25 MG CAP PO ONE (17:50)
[2017-06-20] MEDS ORDERED: NITROGLYCERIN 0.4 MG BTL SL PRN (17:50)
[2017-06-20] MEDS ORDERED: DIAZEPAM 5 MG TAB PO ONE (17:50)
[2017-06-20] MEDS ORDERED: FAMOTIDINE 20 MG TAB PO ONE (17:50)
[2017-06-20] MEDS ORDERED: TEMAZEPAM 15 MG CAP PO PRN (17:50)
--- NOTE | 2017-06-20 17:51 | GHP ---
[f rep st] HISTORY AND PHYSICAL DATE OF ADMISSION: 06/20/2017 HISTORY OF PRESENT ILLNESS: The patient is a 46-year-old female with a history of lupus and a comple x hospitalization in February into March of this year where she had MSSA psoas abscess and empyema. She u nderwent IR drainage of the psoas abscess and had a VATS with decortication regarding empyema. Since then she has done relatively well, but she has had a few episodes of intermittent shortness of breath. She had 1 of those recently, was seen by her table saw operator, Dr. Austin, yesterday, who per formed what sounds like he sent a D-dimer which was positive, [facility]. That D-dimer was elevated at 2.37. She had a CTA today that showed no pulmonary embolism, but a marginal large circumferential pericardial effusion, new since of 2016. Also noted is improved right pleural effusion and consolidative process. When I see the patient, she had intermittent shortness of breath. She does not have a cough. Notabl y, she does not have orthopnea, PND, or lower extremity edema. She has not had fever or chills. She has not had sputum. Her prednisone average dose is 5. She took 20 yesterday and took 10 today, and was due to take 5 today. She has not had a pericardial effusion as part of her lupus as far she kno ws prior to this. REVIEW OF SYSTEMS: Complete 10-point review of systems conducted, and negative except as noted in th e HPI. PAST MEDICAL HISTORY: 1. Systemic lupus erythematosus without kidney involvement. 2. History of psoas abscess. 3. Right-sided empyema. 4. Small estrogenic right lower lobe pneumothorax. 5. Constipation. 6. Anemia. 7. Chronic immunosuppression. ALLERGIES: No known drug allergies. HOME MEDICATIONS: Prednisone 5, hydroxychloroquine, ibuprofen, multivitamin, CellCept, omeprazole, s johnna, tramadol. SOCIAL HISTORY: No tobacco. Rare alcohol. Lives in [place]. 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 FAMILY HISTORY: Mother is healthy and at the bedside. PHYSICAL EXAMINATION: VITAL SIGNS: Temp 36.8, blood pressure 108/71, pulse 91, breathing 15 times a minute, 83% on room air and 90% on room air. She has a negative pulsus paradoxus. GENERAL: No acu te distress. HEENT: Sclerae anicteric. Oropharynx clear. Mucous membranes moist. NECK: Supple w ithout lymphadenopathy or JVD. LUNGS: Clear to auscultation bilaterally. HEART: S1, S2. ABDOMEN: Soft, nontender, nondistended. LOWER EXTREMITIES: Without edema. Calves nontender. SKIN : Without rash. NEUROLOGIC: Nonfocal. LABORATORY DATA: White count 15 which is about her baseline. Hematocrit 34. Platelets are 383,000. D-dimer yesterday was 2.3 which is about where she is. Sodium 138, potassium 3.0, chloride 103, bi carb 24, BUN 10, creatinine 0.5. Troponin less than 0.012. EKG interpreted by me shows sinus with normal axis and intervals. No ST or T-wave changes. Normal E KG. CT of the chest shows no pulmonary embolism, pericardial effusion, as well as reported in the HPI. I have discussed the case Dr. Uzair العلي. ASSESSMENT AND PLAN: A 46-year-old female presents with pericardial effusion without tamponade. 1. Pericardial effusion. She was seen by Cardiology. It sounds like they may be considering taking her to the catheterization laboratory for drainage. I think out of concern for infection, the patie nt clinically looks awfully well to have an infection. Certainly, this is consistent with worsening lupus. I gave her intravenous Solu-Medrol [address] Roel Austin, her primary [facility] umatologist, is unavailable today because it is [place]. Should be contacted tomorrow, but on the outpatient steroid course. Certainly if the fluid is sampled, that will give us some ideas. 2. History of empyema. The patient is afebrile with resolving process on her mid chest imaging. 3. Lupus. We will continue her CellCept and her Plaquenil. 4. Constipation. We will add MiraLax to her senna. 5. Prophylaxis. We will do sequential compression devices for now. Certainly, if she is in the hos pital for a long period of time, it would be reasonable to start low-molecular heparin. 6. Disposition: Inpatient status. /[id number]/MODL
[2017-06-20] MEDS ORDERED: NS 1,000 ML IV SCH (18:00)
--- NOTE | 2017-06-20 18:21 | GCON ---
[f rep st] CONSULTATION CARDIOLOGY CONSULTATION DATE OF CONSULTATION: 06/20/2017 CHIEF COMPLAINT: "I'm short of breath." HISTORY OF PRESENT ILLNESS: The patient is a 46-year-old lady with a history of systemic lupus eryth ematosus which was diagnosed at age 24. She was recently hospitalized with a pleural effusion which was found to be infected and required video-assisted thoracic surgery under the care of Dr. Green. Sh jessica was discharged home after a fairly protracted hospital stay, and has done relatively well. Over past several days and weeks, she has developed progressive shortness of breath with breathlessness with a single flight of stairs. She has also described chest tightness and lightheadedness. The dis comfort seems to be worse with deep inhalation, and does not necessarily change with position. She p resented to her physician, Dr. Austin, who ordered an outpatient D-dimer. When that was found to be elevated, she was asked to have a CT scan to rule out pulmonary embolism. During the CT, a fairly l arge and circumferential pericardial effusion was noted. During her March hospitalization, the patien t had an echocardiogram which was negative for pericardial fluid or thickening. On today's echo, the re is a circumferential pericardial effusion which probably contains 350-400 cc of fluid, and is asso ciated with visceral pericardial thickening, fibrin stranding and echo-densities which could be consi stent with more thickened fluid than is usually seen with a simple pericardial effusion, that has dev eloped over the past 2 months. MEDICATIONS: Include prednisone and another immune modulator under the care Dr. Roel Austin. ALLERGIES: She is not known to be allergic to medications. FAMILY HISTORY: Pertinent for the fact that her maternal grandfather of sudden cardiac , l nadiyaely related to myocardial infarction, at age 62. 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 She does no t smoke, abuse alcohol or illicit drugs. PAST MEDICAL HISTORY: Past medical and surgical history is as listed in the HPI, and is otherwise ne gative. REVIEW OF SYSTEMS: A 10-point review of systems is also negative for recent problems with hematuria, hematemesis, dysuria, abdominal pain, diarrhea, nausea, vomiting, joint pain, arthritis, skin rash, or other issue. She has not had headaches, numbness, paresthesias or evidence of cerebritis. PHYSICAL EXAMINATION: VITAL SIGNS: Blood pressure is 155/104 and elevated, mean arterial pressure i s 121, her heart rate is 95 and regular, respirations 16 and unlabored. Oxygen saturation 92% on jerry m air. Temperature 36.8. NECK: No JVD or lymphadenopathy. She does not have a carotid bruit. Her carotid pulses are equal and symmetrical bilaterally. She does not have a pulsus paradoxus. HEART: Normal S1 and S2 without S3, S4. She does have a faint pericardial rub. ABDOMEN: Benign, with po sitive bowel sounds. It is nondistended and nontender. She does not have organomegaly that is obvio us. EXTREMITIES: Warm, dry and well perfused without significant peripheral edema. LABORATORY: White count of 15.37, her H and H are 10.6 and 34.5, platelet count 383. Her chemistrie s reveal sodium 138, potassium low at 3.0 which was treated in the emergency department, BUN and crea tinine are 10 and 0.5 with a GFR that is greater than 60. Glucose is 73. Troponin-I is less than 0. 012 ng/mL. IMPRESSION AND PLAN: The patient has developed a new pericardial effusion since her last echo in Mar of this year. The patient has also developed shortness of breath and clinical symptoms that are li diamond related to the pericardial effusion. There are echo densities with a thick 1 cm rind all the wa y around the right ventricle and left ventricle, which may be consistent with pericardial constrictio n. At this point, the patient definitely needs to have a pericardiocentesis to remove the fluid, pos sibly with a pericardiocentesis catheter. Right and left heart catheterization with simultaneous pre ssures could also be considered to rule out myocardial restriction or to evaluate for constrictive pe ricarditis once the pericardial fluid has been removed. I have explained the risks, benefits, and alternatives to this course of action to the patient, who u nderstands and is willing to proceed as planned. I think that removal of the fluid will definitely i mprove the patient's shortness of breath as the volume of the fluid, although not yet causing tampona de, is definitely restricting myocardial filling. It would also help us to rule out an active infect ion of the pericardial fluid on the basis of its appearance and Gram stain, as well as cell count. /[id number]/MODL
[2017-06-20 18:47] LABS: INR 1.17 (0.83-1.16); PROTIME(PATIENT) 14.9 SEC (12.0-15.0)
[2017-06-20 18:48] LABS: APTT 25.6 SEC (23.0-38.0)
[2017-06-20 19:06] LABS: ANION GAP 10 mEq/L (8-16); CALCIUM 9.5 mg/dL (8.5-10.4); CARBON DIOXIDE 22 mEq/l (22-31); CHLORIDE 102 mEq/L (97-110); CHOLESTEROL 142 mg/dL (140-200); CHOLESTEROL/HDL RATIO 3.46 RATIO (1.00-4.44); CREATININE 0.5 mg/dL (0.6-1.0); GLOMERULAR FILTRATION RATE > 60; GLUCOSE 95 mg/dL (70-100); HIGH DENSITY LIPOPROTEIN 41 mg/dL (40-95); LOW DENSITY LIPOPROTEIN 86 mg/dL (70-100); MAGNESIUM 1.7 mg/dL (1.6-2.3); NON-HIGH DENSITY LIPOPROTEIN 101 mg/dL (90-129); POTASSIUM 3.3 mEq/L (3.5-5.2); SODIUM 134 mEq/L (134-144); TRIGLYCERIDE 78 mg/dL (35-135); VERY LOW DENSITY LIPOPROTEINS 15 mg/dL (8-25)
[2017-06-20] MEDS: SENNOSIDES/DOCUSATE SODIUM TAB PO SCH (20:24)
[2017-06-20] MEDS: HYDROXYCHLOROQUINE SULFATE 200 MG TAB PO SCH (20:25)
[2017-06-20] MEDS ORDERED: NON-FORMULARY NEW DRUG (Mycophenolate Mofetil [Cellcept] 1,000 MG) PO SCH (21:00)
[2017-06-20] MEDS ORDERED: MYCOPHENOLATE MOFETIL 250 MG CAP PO SCH (21:00)
[2017-06-21 05:30] LABS: % IMMATURE GRANULYOCYTES 0.3 % (0.0-1.1); ABSOLUTE IMMATURE GRANULOCYTES 0.04 10^3/uL (0.00-0.10); ADD DIFF? NO; ADD MORPH? NO; ADD SCAN? NO; ATYPICAL LYMPHOCYTE FLAG 0 (0-99); FRAGMENT RBC FLAG 20 (0-99); HEMATOCRIT 31.5 % (38.0-47.0); HEMOGLOBIN 9.8 g/dL (12.6-16.3); LEFT SHIFT FLG 0 (0-99); LIPEMIA HEMOLYSIS FLAG 80 (0-99); MEAN CELL HEMOGLOBIN 25.3 pg (27.9-34.1); MEAN CELL HEMOGLOBIN CONCENTR. 31.1 g/dL (32.4-36.7); MEAN CELL VOLUME 81.4 fL (81.5-99.8); MEAN PLATELET VOLUME 10.4 fL (8.7-11.7); PLATELET CLUMPS FLAG 0 (0-99); PLATELET COUNT 326 10^3/uL (150-400); RED BLOOD CELL COUNT 3.87 10^6/uL (4.18-5.33); RED CELL DISTRIBUTION WIDTH 16.5 % (11.5-15.2)
[2017-06-21 05:45] LABS: ANION GAP 9 mEq/L (8-16); CARBON DIOXIDE 22 mEq/l (22-31); CHLORIDE 106 mEq/L (97-110); CREATININE 0.4 mg/dL (0.6-1.0); GLOMERULAR FILTRATION RATE > 60; GLUCOSE 120 mg/dL (70-100); POTASSIUM 3.9 mEq/L (3.5-5.2); SODIUM 137 mEq/L (134-144)
[2017-06-21] MEDS: methylPREDNISolone SOD SUCC 125 MG/2 ML VIAL IVP SCH ×4 (06:16→17:50)
[2017-06-21] MEDS ORDERED: ASPIRIN EC 325 MG TAB PO ONE (08:00)
[2017-06-21] MEDS ORDERED: DIAZEPAM 5 MG TAB PO ONE (08:00)
[2017-06-21] MEDS ORDERED: FAMOTIDINE 20 MG TAB PO ONE (08:00)
[2017-06-21] MEDS ORDERED: diphenhydrAMINE 25 MG CAP PO ONE (08:00)
[2017-06-21] MEDS: SENNOSIDES/DOCUSATE SODIUM TAB PO SCH ×2 (09:50→21:12)
[2017-06-21] MEDS: POLYETHYLENE GLYCOL 3350 17 GM PKT PO SCH (09:50)
[2017-06-21] MEDS: MULTIVITAMINS 1 EACH TAB PO SCH (09:51)
--- NOTE | 2017-06-21 10:01 | PDHPUP ---
History & Physical Update H&P update statement: This history and physical update is based on an assessment of the patient which was completed after admission or registration (within 24 hours), but prior to the surgery/procedure. H&P update: H&P reviewed & patient examined, no change in patient's condition since H&P completed (no changes since consultation yesterday)
--- NOTE | 2017-06-21 10:02 | PDPROPOC ---
Sedation Plan of Care Sedation Plan of Care: vital signs stable, mental status noted, patient educated of risks, benefits, alternatives, patient can tolerate sedation ASA Classification: ASA 3 Planned drugs: fentanyl, midazolam, other (possible etomidate) Mallampati Score: Class 3 Mallampati Reference Image: Patient passed 3-3-2 rule?: Yes
[2017-06-21] MEDS ORDERED: fentaNYL 100 MCG/2 ML INJ ONE (13:04)
[2017-06-21] MEDS ORDERED: MIDAZOLAM 2 MG/2 ML VIAL ONE (13:04)
[2017-06-21] MEDS ORDERED: LIDOCAINE 1% 300 MG/30 ML SDV ONE (13:04)
[2017-06-21] MEDS ORDERED: ETOMIDATE 40 MG/20 ML INJ ONE (14:08)
[2017-06-21] MEDS: NS 1,000 ML IV SCH (16:55)
[2017-06-21 17:24] LABS: BODY FLUID PROTEIN PERICARDIAL FLUID
--- NOTE | 2017-06-21 17:42 | HOSPPROG ---
Hospitalist Progress Note Assessment/Plan: Assessment: 47-year-old female presents with acute shortness of breath secondary to acute pericardial effusion Plan: 1. Pericardial effusion. Acute, new problem this provider, further workup indicated. Imaging demonstrating moderate to large pericardial effusion on CT, patient evaluated by Dr. Kamar Bernal and he has recommended pericardiocentesis as well as left and right heart catheterization -EKG demonstrates T-wave inversions in the inferolateral leads, personally interpreted -postprocedure, drain remains in place -pain management as needed -fluid culture sent, currently pending -repeat white blood cell count in a.m. -monitor closely for hypotension -monitor on telemetry 2. Pleural effusion. Acute, small on left, present on imaging, discontinue IV fluids once patient is able to tolerate oral intake 3. SLE. Chronic, continue home medications Diet. Regular Prophylaxis. Moderate risk patient, hold pharm given pericardial drain, SCDs Code. Full Disposition. Anticipated discharge uncertain, pending pericardial drain output. High medical complexity patient, high risk for worsening morbidity and/or mortality, monitoring in intensive care unit postprocedure. Subjective: Patient reports no pain at rest, no bowel movements Objective: Vital Signs Temp Pulse Resp BP Pulse Ox 36.4 C 77 13 147/90 H 97 06/21/17 15:32 06/21/17 16:00 06/21/17 16:00 06/21/17 16:00 06/21/17 16:00 Laboratory Results 06/21/17 05:16 06/21/17 05:16 06/20/17 06/21/17 06/22/17 05:59 05:59 05:59 Intake Total 1500 500 Output Total 125 Balance 1500 375 PT 14.9 SEC (12.0-15.0) 06/20/17 18:12 INR 1.17 (0.83-1.16) H 06/20/17 18:12 - Physical Exam Constitutional: no apparent distress, appears nourished, not in pain Cardiovascular: regular rate and rhythym, no murmur, rub, or gallop, No irregularly irregular, No bradycardia, No edema Respiratory: reduced air movement (Left base), No expiratory wheeze, No inspiratory crackles, No bronchial breath sounds, No respiratory distress Gastrointestinal: normoactive bowel sounds, soft, non-tender abdomen, no palpable masses, No distension Neurologic: AAOx3, sensation intact bilaterally, No weakness Psychiatric: interacting appropriately, not anxious, not encephalopathic, thought process linear ICD10 Worksheet Patient Problems: Problems Problem Status Onset Pleural effusion Acute Facial cellulitis Acute Abdominal cyst Acute Pericardial effusion Acute
[2017-06-21] MEDS ORDERED: oxyCODONE IR 5 MG TAB PO PRN (17:44)
[2017-06-21] MEDS ORDERED: BISACODYL 10 MG SUPP PR PRN (17:44)
[2017-06-21] MEDS ORDERED: MAGNESIUM HYDROXIDE 30 ML UDCUP PO PRN (17:44)
[2017-06-21] MEDS ORDERED: LACTULOSE 20 GM/30 ML UDCUP PO PRN (17:44)
[2017-06-21] MEDS: predniSONE 20 MG TAB PO SCH (18:24)
--- NOTE | 2017-06-21 20:49 | CPIP ---
[f rep st] INVASIVE CARDIAC PROCEDURE DATE OF PROCEDURE: 06/21/2017 PROCEDURE PERFORMED: Ultrasound and fluoroscopic-guided pericardiocentesis. INDICATIONS/APPROPRIATE USE CRITERIA: The patient was recently admitted with an empyema and pleural fluid which was noted to be infected and at that time, had an echocardiogram where she was not found to have evidence of a pericardial effusion. She underwent a video-assisted thoracic surgery under th e care of Dr. Green where some of that fluid and adhesions were removed. The patient was readmitted w ith shortness of breath and she has been found to have a moderately-sized pleural effusion with assoc iated thickened, echodense material attached to the outside of her right ventricle. The majority of the fluid was somewhat posteriorly around the left ventricle but because of the possibility of infect ion or a hemorrhagic pericardium given the short time frame in which this fluid and soft tissue densi ty developed, we felt it would be prudent to obtain some of the pericardial fluid for study. After informed consent was obtained and n.p.o. status was confirmed, the region of the subxiphoid are a was cleaned, prepped and draped in sterile fashion. Approximately 15 cc of 1% lidocaine were utili zed for local anesthesia. A pericardiocentesis trocar was advanced under direct fluoroscopic and ech o guidance to try to place the tip in the pericardial space. Initial injection documented bubbles wi thin the right ventricle which may be consistent with RV access with the needle. We therefore withdr ew the trocar back into the pericardial space, again injected, documenting this to be within the vincenzo on of the diaphragm. The needle was advanced slightly and then a J-wire was placed into the pericard ial space. A dilator was placed over this wire and then the pericardiocentesis drain was exchanged f or the dilator and approximately 100 cc of blood-tinged fluid was removed from the pericardial space and will be sent to the laboratory for study. There was significant decrease in the amount of the pe ricardial effusion but it does appear to be somewhat loculated given the fact that we were unable to drain the entire pericardial space while she was here in the lab. We will leave the drain in overnight and the patient will be admitted to the ICU with attempted drain age of the catheter every 2 hours. A limited echocardiogram will be obtained in the morning at which time we should be able to discontinue the pericardiocentesis drain if the output remains at or near 0. FINAL IMPRESSION: Successful placement of pericardiocentesis drain catheter with partial removal of and reduction in size of the pericardial fluid. /[id number]/MODL
[2017-06-21] MEDS: HYDROXYCHLOROQUINE SULFATE 200 MG TAB PO SCH (21:11)
[2017-06-22 06:02] LABS: % IMMATURE GRANULYOCYTES 0.5 % (0.0-1.1); ABSOLUTE IMMATURE GRANULOCYTES 0.09 10^3/uL (0.00-0.10); ADD DIFF? NO; ADD MORPH? NO; ADD SCAN? NO; ATYPICAL LYMPHOCYTE FLAG 0 (0-99); FRAGMENT RBC FLAG 20 (0-99); HEMATOCRIT 34.1 % (38.0-47.0); HEMOGLOBIN 10.4 g/dL (12.6-16.3); LEFT SHIFT FLG 0 (0-99); LIPEMIA HEMOLYSIS FLAG 80 (0-99); MEAN CELL HEMOGLOBIN 25.3 pg (27.9-34.1); MEAN CELL HEMOGLOBIN CONCENTR. 30.5 g/dL (32.4-36.7); MEAN PLATELET VOLUME 10.4 fL (8.7-11.7); PLATELET CLUMPS FLAG 0 (0-99); PLATELET COUNT 420 10^3/uL (150-400); RED BLOOD CELL COUNT 4.11 10^6/uL (4.18-5.33); RED CELL DISTRIBUTION WIDTH 16.4 % (11.5-15.2)
[2017-06-22 06:15] LABS: ANION GAP 9 mEq/L (8-16); CARBON DIOXIDE 24 mEq/l (22-31); CHLORIDE 108 mEq/L (97-110); CREATININE 0.5 mg/dL (0.6-1.0); GLUCOSE 120 mg/dL (70-100); POTASSIUM 3.8 mEq/L (3.5-5.2); SODIUM 141 mEq/L (134-144)
[2017-06-22 06:16] LABS: CALCIUM 9.2 mg/dL (8.5-10.4); GLOMERULAR FILTRATION RATE > 60
[2017-06-22] MEDS ORDERED: predniSONE 5 MG TAB PO SCH (09:00)
[2017-06-22] MEDS: predniSONE 20 MG TAB PO SCH (09:05)
[2017-06-22] MEDS: SENNOSIDES/DOCUSATE SODIUM TAB PO SCH (09:07)
[2017-06-22] MEDS: MULTIVITAMINS 1 EACH TAB PO SCH (09:07)
[2017-06-22] MEDS: POLYETHYLENE GLYCOL 3350 17 GM PKT PO SCH (09:09)
--- NOTE | 2017-06-22 10:08 | PDCARPN ---
Cardiology Progress Note Assessment/Plan: Assessment/plan: 47 yo F with SLE on chronic immunosupression admitted 06/[address] showed pericardial effusion. No tamponade. No PE. Had pericardiocentesis 06/21 with removal of 100 cc bloody fluid. Gram stain negative. Many RBC and WBC in fluid. Minimal draininage 1. Pericardial effusion: suspect this is related to SLE. Follow cultures. Steroids per Dr. Salazar. She is on chronic steroids. Will review echo just complete and likely remove pericardial drain. 2. SLE: per medicine and rheumatology 06/22/17 10:17 Subjective: Alma feels better. No pleuritic CP or SOB. She admits that she has had some chest discomfort ever since her February hospitalization for psoas abcess/ empyema. It has gotten worse over the past few days. No fever or rash at home. Reviewed/Discussed With: multidisciplinary team Objective: Vital Signs (8 Hrs) Temp Pulse Resp BP Pulse Ox 06/22/17 08:00 36.4 C 81 14 120/75 95 06/22/17 06:00 79 18 132/87 H 98 06/22/17 04:00 77 19 120/78 99 06/22/17 02:00 74 13 121/79 H 98 Intake/Output (24 Hrs) 06/21/17 06/22/17 06/23/17 05:59 05:59 05:59 Intake Total 1500 700 Output Total 125 18 Balance 1500 575 -18 Intake: Oral (ml) 50 IV Intake (ml) 550 IV Infused (ml) 1500 100 Ns 1,000 ml @ 125 mls/hr 1500 100 IV CONT SHIRA Rx#: [id number] Output: Pericardial Drain Output 125 18 (ml) #1 Anterior Pericardial 125 18 Other: Weight 76.204 kg Intake Quantity npo Sufficient Number of Voids Toilet 1 Result Diagrams: 06/22/17 05:30 06/22/17 05:30 EKG: reviewed: NSR. NS diffuse ST-T abnl Telemetry: NSR Echocardiogram: 06/21 echo reviewed: small circumferential pericardial effusion containing fibrinous debris. Normal LVEF> No tamponade. ICD10 Worksheet Patient Problems: Problems Problem Status Onset Pleural effusion Acute Facial cellulitis Acute Abdominal cyst Acute Pericardial effusion Acute
--- NOTE | 2017-06-22 11:34 | ECHO ---
[email or web address] [address] [address] Main: [phone] Fax: Transthoracic Echocardiogram Name: PETER JEFF MR#: [id number] Study Date: 06/22/2017 Study Time: 08:46 AM Date of : 1970 Age: 47 year(s) Height: 167.6 cm (66 in.) Weight: 80.29 kg (177 lb.) BSA: 1.9 m2 Gender: Female Examination: Limited Echo Indication: Limited echo for follow up pericardiocentesis Image Quality: Contrast: Requested by: Junior Randolph BP: 120 mmHg/75 mmHg Heart Rate: Rhythm: Indication: Limited echo for follow up pericardiocentesis Procedure Staff Ordering Physician: AMERICA Milling Operator: Lisa Ni Reading Physician: Dasia Landers Conclusions: Normal global systolic LV function. Residual trace pericardial effusion with echogenicity within. Compared to previous echocardiogram there is a change in almost complete resolution of pericardial effusion. Measurements: Chambers Valvular Assessment AV/MV Valvular Assessment TV/PV Normal Normal Normal Name Value Range Name Value Range Name Value Range TR Vmax: 2.12 mm/s ( - ) TR PGmax: 18 mmHg ( - ) syst. PAP: 23 mmHg ( - ) Continued Measurements: Valvular Assessment TV/PV Name Value CVP (est.): 5 Findings: Left Ventricle: Normal global systolic LV function. Right Ventricle: Left Atrium: Right Atrium: Patient: PETER JEFF Study Date: 06/22/2017 Page 1 of 2 08:46 AM Mitral Valve: Aortic Valve: Tricuspid Valve: Pulmonic Valve: Great Vessels: Pericardium: Residual trace pericardial effusion with echogenicity within. (No Signature Object) Patient: PETER JEFF Study Date: 06/22/2017 Page 2 of 2 08:46 AM [id number]
--- NOTE | 2017-06-22 11:41 | CPIP ---
[f rep st] INVASIVE CARDIAC PROCEDURE DATE OF PROCEDURE: 06/22/2017 PROCEDURE: Removal of pericardial drain. INDICATIONS: Drain no longer needed as there is minimal drainage and post pericardiocentesis echo sh ows minimal pericardial fluid. COMPLICATIONS: None. DESCRIPTION OF PROCEDURE: Dressing and sutures were removed. The drain was removed, and a Tegaderm dressing applied. The patient tolerated the procedure well without complication. /[id number]/MODL
[2017-06-22 12:11] VITALS: TEMP 98.6
--- NOTE | 2017-06-22 13:27 | PDDCSUM ---
Discharge Summary Discharge Summary: DISCHARGE SUMMARY FOLLOW-UP ITEMS: Pericardial fluid cultures sent, restart mycophenolate after negative cultures have been confirmed DATE OF ADMISSION: 06/20/2017 DATE OF DISCHARGE: 06/22/2017 DISCHARGE DIAGNOSES: 1. Acute pericardial effusion 2. Acute pleural effusion 3. Acute lupus flare 4. Chronic immunosuppression CONSULTATIONS: Cardiology PROCEDURES / IMAGING: Pericardial centesis with indwelling drain, removed prior to discharge, echocardiogram on 06/22/17 demonstrating near complete resolution of the pericardial effusion with only trace amount as residual CHIEF COMPLAINT: Acute shortness of breath SUBJECTIVE: Patient is feeling well at time of discharge, she denies any pain or shortness of breath PHYSICAL EXAM ON DISCHARGE: Systolic blood pressure is 110/130, satting well on room air, lungs are clear to auscultation bilaterally, heart rate is regular with regular rhythm, no erythema around the pericardial drain site LABS ON DISCHARGE: Gram stain demonstrates white blood cells, no organism seen, white blood cell count 28527, creatinine 0.5, hemoglobin 10.4 HOSPITAL COURSE BY PROBLEM: The patient presented with acute symptomatic pericardial effusion most likely secondary to acute lupus flare, requiring pericardiocentesis and indwelling drain placement. The procedure was performed on June 21, and Dr. Bernal sent the aspirate for diagnostic studies. Diagnostic studies demonstrated a significant red blood cell count (173,000), significant white blood cell count ( 7,900), significant LDH (6100), and our impression was that the pericardial effusion was secondary to active lupus. That being said, the patient did recently experience a significant infection in the setting of chronic immunosuppression, and Dr. Roel Austin recommended that the patient's mycophenolate be placed on hold until her aspirate cultures are definitively negative. He will direct the resumption of her mycophenolate as an outpatient. He recommended initiation of prednisone 30 mg daily for 2 weeks and he will see her in follow-up. The patient did receive a steroid burst during her hospitalization and her symptoms of shortness of breath and chest pain have completely resolved. She did have a small left pleural effusion on chest imaging, but she is currently not symptomatic. She will use as needed tramadol if she experiences any recurrent pain at the pericardiocentesis site. DISCHARGE MEDICATIONS: Please see official discharge medication reconciliation sheet in chart as- needed tramadol, prednisone 30 mg daily, holding mycophenolate. DISCHARGE INSTRUCTIONS: Please contact Dr. Roel Austin office on Saturday and follow up as soon as possible. TIME SPENT: Greater than 30 minutes were spent on direct patient care, as well as discharge planning and preparation.
[2017-06-22 14:02] VITALS: BP 119/75; PULSE 84; RESP 16; O2SAT 92
--- NOTE | 2017-06-22 14:09 | ASMTCMCOM ---
CM Note CM Note Notes: 06/22/2017 Case Management Note: Pt to d/c independent w/ follow up as directed by . Pt well supported in community by medical providers. No case management d/c needs identified. See discharge packet for appointment recommendations by . Date Signed: 06/22/2017 02:08 PM Electronically Signed By:Marichuy Calle RN
--- NOTE | 2017-06-22 15:52 | ASDISCHSUM ---
Discharge Information Plan Status:Home with No Needs Medically Cleared to Leave:06/22/2017 Discharge Date:06/22/2017 02:18 PM CM D/C Disposition:Home, Routine, Self-Care ADT D/C Disposition:Home, Routine, Self-Care Projected Discharge Date:06/22/2017 02:18 PM Transportation at D/C:Family Discharge Delay Reason: Follow-Up Date:06/22/2017 02:18 PM Discharge Slot: Final Diagnosis: Placement Information Patient Contact Information Contact Name:CHRISTI Relationship: Address:[address] [facility] City:[place] Alternate Phone: [facility]/Zip Code:[place] [address] Email: Financial Information Financial Class:HMO and PPO Plans Primary Plan Desc:[employer] PPO POS HMO Primary Plan Number:[id number] Secondary Plan Desc: Secondary Plan Number: Assessment Information [facility] CM Progress Note CM Note CM Note Notes: 06/22/2017 Case Management Note: Pt to d/c independent w/ follow up as directed by . Pt well supported in community by medical providers. No case management d/c needs identified. See discharge packet for appointment recommendations by . Date Signed: 06/22/2017 02:08 PM Electronically Signed By:Marichuy Calle RN Intervention Information Intervention Type:*Incorrect Registration Date of Service:06/20/2017 04:00 PM Patient Type:Inpatient Staff Member:FRANCESCO Hernandez Dina Hours: Discipline: Severity: Comment:
--- NOTE | 2017-06-24 11:50 | ECHO ---
[email or web address] [address] [address] Main: [phone] Fax: Transthoracic Echocardiogram Name: PETER JEFF MR#: [id number] Study Date: 06/21/2017 Study Time: 01:57 PM Date of : 1970 Age: 47 year(s) Height: ( ) Weight: ( ) BSA: Gender: Female Examination: Limited Echo Indication: Pericardiocentisis Image Quality: Contrast: Requested by: Junior Randolph BP: / Heart Rate: Rhythm: Indication: Pericardiocentisis Procedure Staff Grant Manager: Tony Stearns Reading Physician: Reading Physician: Dasia Landers Conclusions: This is a limited echo to evaluate pericardial effusion during pericardiocentis. 110cc of pericardial fluid was removed. At the start of procedure, there is a moderate circumferential pericardial effusion. This is almost completely resolved s/p pericardiocentesis Measurements: Chambers Valvular Assessment AV/MV Valvular Assessment TV/PV Normal Normal Normal Name Value Range Name Value Range Name Value Range Continued Measurements: Findings: Left Ventricle: Right Ventricle: Left Atrium: Right Atrium: Mitral Valve: Aortic Valve: Tricuspid Valve: Pulmonic Valve: Patient: PETER JEFF Study Date: 06/21/2017 Page 1 of 2 01:57 PM Great Vessels: Pericardium: This is a limited echo to evaluate pericardial effusion during pericardiocentis. 110cc of pericardial fluid was removed. (No Signature Object) Patient: PETER JEFF Study Date: 06/21/2017 Page 2 of 2 01:57 PM [id number]
== END 2017-06-22 14:18 | disposition home or self-care (01) | DRG 315 ==
LOC: OBSVTOIN 15:00 → F2W 16:20 → EDSTATUS 18:00 → F2N 06-21 15:10
PROVIDERS: ADMIT Internal Medicine; ATTEND Internal Medicine
PROC: 0W9D30Z Drainage of Pericardial Cavity with Drainage Device, Percutaneous Approach (ICD-10-PCS; principal; 2017-06-21)
DX: I31.3 Pericardial effusion (noninflammatory) (principal); J90 Pleural effusion, not elsewhere classified; M32.9 Systemic lupus erythematosus, unspecified; Z87.891 Personal history of nicotine dependence; K59.00 Constipation, unspecified
CPT/HCPCS: C1769; J2250; J3010; Q9967